=== PATIENT | female | born 1950 | race Caucasian/White ===

== ENCOUNTER 2020-03-07 16:15 | Outpatient (CLI) | payer MEDICARE, SELFPAY ==
--- NOTE | ~2020-03-07 | MM_ITS ---
EXAMINATION: MM screening alireza BI w kaylee HISTORY: Screening mammogram, family history of breast cancer in her mother. TECHNIQUE: Craniocaudal and mediolateral oblique 3-D tomosynthesis images were obtained and synthetic 2-D images were generated. CAD analysis was submitted and interpreted. COMPARISON: 02/08/2019, 02/01/2018, 01/26/2017 BREAST PARENCHYMAL COMPOSITION: The breasts are heterogeneously dense, which may obscure small masses . FINDINGS: RIGHT BREAST: An asymmetry is present in the far posterior third of the inner breast on the craniocau edward view. LEFT BREAST: There is no evidence of suspicious mass, calcification, or architectural distortion to s uggest malignancy. There has been no significant interval change. IMPRESSION: 1. Right breast asymmetry. 2. Additional mammographic views and possible breast ultrasound are recommended. BI-RADS Category 0: Incomplete: Needs additional imaging evaluation. Reviewed, dictated and finalized at location A. K STITCHER IMPRESSION: 1. Right breast asymmetry. 2. Additional mammographic views and possible breast ultrasound are recommended . BI-RADS Category 0: Incomplete: Needs additional imaging evaluation.
== END 2020-03-07 16:16 | disposition home or self-care (01) ==
PROVIDERS: PCP Family Medicine; Visit Provider Obstetrics & Gynecology
DX: Z12.31 Encounter for screening mammogram for malignant neoplasm of breast (principal); R92.8 Other abnormal and inconclusive findings on diagnostic imaging of breast
CPT/HCPCS: 77063; 77067

== ENCOUNTER 2020-04-06 12:46 | Outpatient (CLI) | payer MEDICARE, SELFPAY ==
--- NOTE | ~2020-04-06 | MMUS_ITS ---
EXAMINATION: MM diagnostic mammo unilat RT, US breast RT limited HISTORY: Follow-up right breast asymmetry TECHNIQUE: Additional 3-D tomosynthesis images of the right breast were performed and synthetic 2-D i mages were generated. CAD analysis was submitted and interpreted. High resolution Limited right breas t ultrasound was performed. COMPARISON: Comparison to multiple prior studies sequentially, with oldest reviewed study dated 01/07. BREAST PARENCHYMAL COMPOSITION: Breast composed of scattered areas of fibroglandular density. FINDINGS: MAMMOGRAPHIC FINDINGS: Focal asymmetry medially in the right breast on CC view is compatible with sternalis muscle. No suspi cious masses, calcifications or architectural distortion to suggest malignancy. There are benign calc ifications. ULTRASOUND: Limited right breast ultrasound: Normal heterogeneous echotexture without focal mass. IMPRESSION: 1. No evidence for malignancy in the right breast. 2. Routine yearly screening mammogram and regular clinical breast examination are recommended. BI-RADS Category 2: Benign finding(s). Reviewed, dictated and finalized at location A. ACT LENS TECHNICIAN IMPRESSION: 1. No evidence for malignancy in the right breast. 2. Routine yearly screening mammogram and regular clinical breast examination a re recommended. BI-RADS Category 2: Benign finding(s).
== END 2020-04-06 12:47 | disposition home or self-care (01) ==
LOC: ANHIMG 12:47
PROVIDERS: Family Provider Obstetrics & Gynecology; PCP Family Medicine; Visit Provider Obstetrics & Gynecology
DX: R92.8 Other abnormal and inconclusive findings on diagnostic imaging of breast (principal)
CPT/HCPCS: 76642; 77065

== ENCOUNTER 2020-04-23 09:03 | Outpatient (CLI) | payer MEDICARE, SELFPAY ==
--- NOTE | ~2020-04-23 | DEXA_ITS ---
Bone Density Report Name: Amada Gayle Age: 69 Sex: Female Ethnicity: White Date of : 1950 Indication: postmenopausal; hysterectomy; rheumatoid arthritis; Referring Provider: SUNDAY YA Study: Bone densitometry was performed. Exam Date: April 23, 2020 Accession number: [id number] Bone Density: Region BMD T-score Z-score Classification AP Spine (L1, L2, L3) 0.932 -0.8 1.3 Normal Femoral Neck (Left) 0.828 -0.2 1.6 Normal Total Hip (Left) 0.928 -0.1 1.4 Normal Total Hip Bilateral Avg 0.923 -0.2 1.4 Normal Femoral Neck (Right) 0.816 -0.3 1.5 Normal Total Hip (Right) 0.918 -0.2 1.3 Normal World Health Organization criteria for BMD impression classify patients as: Normal (T-score at or above -1.0), Osteopenia (T-score between -1.0 and -2.5), or Osteoporosis (T-score at or below -2.5). 10-year Fracture Risk: FRAX not reported because: All T-scores for Spine Total, Hip Total, Femoral Neck at or above -1.0 Previous Exams: Region Exam Age BMD T-score BMD Change BMD Change Date g/cm2 vs Baseline vs Previous AP Spine(L1, L2, L3) 04/23/2020 69 0.932 -0.8 -0.042(-4.3%)# -0.023(-2.4%)* 04/23/2018 67 0.955 -0.6 -0.019(-2.0%)# 0.026(2.9%)* 04/15/2016 65 0.929 -0.8 -0.046(-4.7%)# 0.012(1.3%)# 03/29/2012 61 0.917 -0.9 -0.058(-5.9%)# -0.029(-3.1%)# 08/20/2009 59 0.947 -0.6 -0.028(-2.9%)* -0.028(-2.9%)* 08/17/2007 57 0.975 -0.4 Total Hip(Left) 04/23/2020 69 0.928 -0.1 -0.016(-1.7%)# -0.068(-6.9%)* 04/23/2018 67 0.996 0.4 0.052(5.5%)# 0.070(7.5%)* 04/15/2016 65 0.926 -0.1 -0.018(-1.9%)# -0.018(-1.9%)# 03/29/2012 61 0.945 0.0 0.001(0.1%)# 0.013(1.3%)# 08/20/2009 59 0.932 -0.1 -0.012(-1.3%) -0.012(-1.3%) 08/17/2007 57 0.944 0.0 Total Hip(Right) 04/23/2020 69 0.918 -0.2 -0.022(-2.3%)# -0.054(-5.5%)* 04/23/2018 67 0.972 0.2 0.032(3.4%)# 0.078(8.7%)* 04/15/2016 65 0.894 -0.4 -0.046(-4.9%)# -0.059(-6.2%)# 03/29/2012 61 0.953 0.1 0.013(1.4%)# 0.029(3.1%)# 08/20/2009 59 0.924 -0.1 -0.016(-1.7%) -0.016(-1.7%) 08/17/2007 57 0.940 0.0 *Denotes significance at 95% confidence level, LSC for AP Spine = 0.022 g/cm2, LSC for Total Hip = 0.027 g/cm2 Clinical Information Provided by Patient: Has rheumatoid arthritis Has used the following medications: Vitamin D, Calcium Has the following medical conditions: Hysterectomy Patient maximum height was 66.5 Menopause Age: 34 Drinks caffeinated b
== END 2020-04-23 09:04 | disposition home or self-care (01) ==
LOC: ANHIMG 09:04
PROVIDERS: PCP Family Medicine; Visit Provider Obstetrics & Gynecology
DX: Z78.0 Asymptomatic menopausal state (principal)
CPT/HCPCS: 77080

== ENCOUNTER → 2020-10-23 08:06 | Outpatient (CLI) | payer MEDICARE, SELFPAY ==
[2020-10-23 21:09] LABS: SARS-CoV-2 RNA PCR Negative
== END ==
PROVIDERS: PCP Family Medicine; Visit Provider Nurse Practitioner Family
DX: R68.89 Other general symptoms and signs (principal); Z20.822 Contact with and (suspected) exposure to COVID-19
CPT/HCPCS: C9803; U0003; U0005

== ENCOUNTER 2021-01-04 13:23 | Outpatient (CLI) | payer MEDICARE, SELFPAY ==
--- NOTE | ~2021-01-04 | MMUS_ITS ---
EXAMINATION: MM diagnostic alireza BI w kaylee, US breast RT complete HISTORY: Right breast pain TECHNIQUE: ML, MLO and craniocaudal 3-D tomosynthesis images of both breasts were performed and [facility] were generated. CAD analysis was submitted and interpreted. High resolution complete right breast ultrasound including all 4 quadrants and subareolar area was performed. COMPARISON: 04/06/2020 right diagnostic mammogram and limited right breast ultrasound 03/07/2020, 02/25/2019, 02/01/2018 bilateral screening mammogram examinations BREAST PARENCHYMAL COMPOSITION: The breasts are heterogeneously dense, which may obscure small masses . FINDINGS: MAMMOGRAPHIC FINDINGS: No suspicious mass or architectural distortion, malignant calcification, skin thickening or retractio n or significant new or developing density is detected. ULTRASOUND: No suspicious mass or shadowing of the right breast is detected. No other significant finding. IMPRESSION: 1. No mammographic evidence of malignancy 2. Routine mammographic screening is recommended. BI-RADS Category 1: Negative Reviewed, dictated and finalized at location A. IMPRESSION: 1. No mammographic evidence of malignancy 2. Routine mammographic screening is recommended. BI-RADS Category 1: Negative
== END 2021-01-04 13:24 | disposition home or self-care (01) ==
LOC: ANHIMG 13:25
PROVIDERS: PCP Family Medicine; Visit Provider Obstetrics & Gynecology
DX: N64.4 Mastodynia (principal)
CPT/HCPCS: 76641; 77062; 77066; G0279

== ENCOUNTER 2021-03-06 18:22 | Emergency (ER) | payer MEDICARE, SELFPAY ==
--- NOTE | 2021-03-06 18:24 | PC.NURSE ---
pt instructed to apply pressure. pt non compliant. nose clamp placed and pt removed. states she cant breathe.
[2021-03-06 18:32] VITALS: BP 111/56; RESP 16; TEMP 35.9
[2021-03-06] MEDS: PHENYLEPHRINE HCL 0.5% NA SPRAY 15 ML BTL (*BKC) 1 SPRAY EACH NARE (19:08)
--- NOTE | 2021-03-06 19:27 | PC.NURSE ---
Report received from Kevin Ivy RN to continue care.
--- NOTE | 2021-03-06 19:56 | ED.EPISTAXIS ---
HPI - Epistaxis General Chief complaint: Epistaxis Stated complaint: nosebleed Time Seen by Provider: 03/06/21 18:50 Source: patient Mode of arrival: ambulatory Limitations: no limitations History of Present Illness HPI Narrative: 70-year-old with a history of hypothyroidism here with complaints of sudden onset of nosebleed on the left side started few hours ago. Patient states that she had one last night lasted for few minutes. She denies any trauma. MD complaint: epistaxis Location: left nostril Onset (ago): hour(s) (1) Duration: constant Related Data Home Medications Medication Instructions Recorded Confirmed Calcium 01/29/19 10/24/20 Fiber Con 01/29/19 10/24/20 diphenhydramine HCl 25 mg capsule 25 mg PO BID 12/19/20 Allergies Allergy/AdvReac Type Severity Reaction Status Date / Time tramadol Allergy Intermediate RAPID Verified 12/19/20 10:06 HEART RATE/LOSS OF WEIGHT azithromycin Allergy Mild RASH Verified 12/19/20 10:06 ciprofloxacin [From Cipro] Allergy Mild rash Verified 12/19/20 10:06 Penicillins Allergy Mild Rash Verified 12/19/20 10:06 sulfamethoxazole Allergy Mild Unknown Verified 12/19/20 10:06 [From Bactrim] trimethoprim [From Bactrim] Allergy Mild Unknown Verified 12/19/20 10:06 nitrofurantoin Allergy Unknown Hives Verified 12/19/20 10:06 Avigbcs-FDH-WhQ Reductase AdvReac Unknown MUSCLE Verified 12/19/20 10:06 Inhibitor WEAKNESS [Xpeztrj-Oft-Qzs Reductase Inhibitor] STEROIDS AdvReac Unknown Unknown Uncoded 12/19/20 10:06 Review of Systems Review of Systems: All systems reviewed & are unremarkable except as noted in HPI and below Constitutional: Constitutional: Reports no additional constitutional complaints Eyes: Eyes: Reports no additional eye complaints ENT: Reports as per HPI Cardiovascular: Cardiovascular: Reports no additional cardiovascular complaints Respiratory: Respiratory: Reports no additional respiratory complaints Musculoskeletal: Musculoskeletal: Reports no additional musculoskeletal complaints Integumentary/Breasts: Skin/Breast: Reports system reviewed and no additional complaints, except as docu PMFSH Past Medical History Medical History Endometriosis H/O vaginal delivery Hypothyroidism Surgical History Surgical History H/O dilation and curettage H/O: hysterectomy History of tubal ligation Hx of tonsillectomy Family History Family History Grandparent Carcinoma of colon Mother Family history of malignant neoplasm of breast in first degree relative Other Hypertension Social History Social History Smoking status: Never smoker Second hand tobacco smoke exposure: No Alcohol intake: never Substance use: never Substance use type: does not use Gender identity (if verbalized by the patient): Female Sexual Orientation (if Verbalized by the Patient): Straight or Heterosexual Exam Narrative: GENERAL: Well-appearing, well-nourished, and in no acute distress. HEAD: Normocephalic, atraumatic. EYES: PERRLA and EOMI. ENT: active bleeding from the left nares. NECK: Supple. CHEST: Clear to auscultation. No respiratory distress. HEART: Regular rate and rhythm. No murmur heard. Normal peripheral pulses. EXTREMITIES: Normal range of motion. No edema. SKIN: Warm, dry, no rash. NEURO: No focal deficits. Alert and oriented x3. PSYCH: Normal mood and affect. Course Vital Signs Vital signs: Vital Signs Temperature 35.9 C L 03/06/21 18:32 Respiratory Rate 16 03/06/21 18:32 Blood Pressure 111/56 L 03/06/21 18:32 Temperature 35.9 C L 03/06/21 18:32 Respiratory Rate 16 03/06/21 18:32 Blood Pressure 111/56 L 03/06/21 18:32 Procedures Epistaxis Control left: Epistax
== END 2021-03-06 20:25 | disposition home or self-care (01) ==
PROVIDERS: Emergency Provider Family Medicine; PCP Family Medicine
DX: R04.0 Epistaxis (principal); E03.9 Hypothyroidism, unspecified
CPT/HCPCS: 30901; 99283; A9270

== ENCOUNTER 2021-07-18 08:01 | Outpatient (CLI) | payer MEDICARE, SELFPAY ==
--- NOTE | ~2021-07-18 | MM_ITS ---
EXAMINATION: MM screening alireza BI w kaylee HISTORY: Screening TECHNIQUE: Craniocaudal and mediolateral oblique 3-D tomosynthesis images were obtained and synthetic 2-D images were generated. CAD analysis was submitted and interpreted. COMPARISON: Comparison to multiple prior studies sequentially, with oldest reviewed study dated 01/08. BREAST PARENCHYMAL COMPOSITION: The breasts are heterogeneously dense, which may obscure small masses . FINDINGS: There is no evidence of suspicious mass, calcification, or architectural distortion to sugg est malignancy in either breast. There has been no suspicious interval change. IMPRESSION: 1. No mammographic evidence of malignancy. 2. Recommend routine screening mammography in one year. BI-RADS Category 1: Negative Reviewed, dictated and finalized at location A.
== END 2021-07-18 08:02 | disposition home or self-care (01) ==
PROVIDERS: PCP Family Medicine; Visit Provider Obstetrics & Gynecology
DX: Z12.31 Encounter for screening mammogram for malignant neoplasm of breast (principal)
CPT/HCPCS: 77063; 77067

== ENCOUNTER → 2021-09-24 08:22 | Outpatient (CLI) | payer MEDICARE, SELFPAY ==
--- NOTE | ~2021-09-24 | XR_ITS ---
EXAMINATION: XR hand RT min 3V, XR wrist RT w scaphoid DATE: Contusion at the right wrist. INDICATION: Contusion at the right wrist. TECHNIQUE: 1. Posteroanterior, ulnar deviation, oblique, and lateral views of the right wrist were obtained. 2. Dorsal palmar, oblique and lateral views of the right hand were obtained. COMPARISON: None. FINDINGS: Alignment of the right hand and wrist are normal. No fracture identified. Polyarticular osteoarthrit is, severe at the first carpometacarpal and with central erosions with: Configuration consistent with erosive osteoarthritis at the second, third and fifth distal interphalangeal joints. Additional mode rate osteoarthritis at the remaining interphalangeal joints and mild osteoarthritis at the triscaphe and at the metacarpophalangeal joints. Mild periarticular soft tissue swelling about some of the inte rphalangeal joints.. IMPRESSION: 1. Severe polyarticular osteoarthritis most prominent at the first carpometacarpal and a few distal i nterphalangeal joints. No acute osseous abnormality. Reviewed, dictated and finalized at location A. IMPRESSION: 1. Severe polyarticular osteoarthritis most prominent at the first carpometacar pal and a few distal interphalangeal joints. No acute osseous abnormality.
== END ==
PROVIDERS: PCP Family Medicine; Visit Provider Physician Assistant
DX: S60.211A Contusion of right wrist, initial encounter (principal); X58.XXXA Exposure to other specified factors, initial encounter; M25.431 Effusion, right wrist; M19.031 Primary osteoarthritis, right wrist
CPT/HCPCS: 73110; 73130

== ENCOUNTER 2022-02-14 10:18 | Outpatient (CLI) | payer MEDICARE, SELFPAY | END 2022-02-14 10:19 | disposition home or self-care (01) | LOC: ANHAUDASC 10:19 | PROVIDERS: PCP Family Medicine; Visit Provider Otolaryngology | DX: H69.81 Other specified disorders of Eustachian tube, right ear (principal); H90.41 Sensorineural hearing loss, unilateral, right ear, with unrestricted hearing on the contralateral side; H90.11 Conductive hearing loss, unilateral, right ear, with unrestricted hearing on the contralateral side | CPT/HCPCS: 92557; 92567 ==

== ENCOUNTER 2022-07-21 07:59 | Outpatient (CLI) | payer MEDICARE, SELFPAY ==
--- NOTE | ~2022-07-21 | MM_ITS ---
EXAMINATION: MM screening alireza BI w kaylee HISTORY: Screening mammogram, family history of breast cancer in her mother. TECHNIQUE: Craniocaudal and mediolateral oblique 3-D tomosynthesis images were obtained and synthetic 2-D images were generated. CAD analysis was submitted and interpreted. COMPARISON: 07/18/2021, 01/04/2021, 03/07/2020 BREAST PARENCHYMAL COMPOSITION:The breasts are heterogeneously dense, which may obscure small masses. FINDINGS: No suspicious mass, calcification, or architectural distortion are identified in either shane ast to suggest malignancy. There has been no suspicious interval change. IMPRESSION: No mammographic evidence of malignancy. Recommend routine screening mammography in one year. BI-RADS Category 1: Negative Reviewed, dictated and finalized at location .
--- NOTE | ~2022-07-21 | DEXA_ITS ---
Bone Density Report Name: IMTALI BEASLEY Age: 72 Sex: Female Ethnicity: White Date of : 1950 Indication: postmenopausal; screening for osteoporosis; hysterectomy; rheumatoid arthritis; Referring Provider: SUNDAY YA Study: Bone densitometry was performed. Exam Date: July 21, 2022 Accession number: [id number] Bone Density: Region BMD T-score Z-score Classification AP Spine(L1, L2, L3) 0.947 -0.6 1.6 Normal Femoral Neck (Left) 0.822 -0.2 1.7 Normal Total Hip (Left) 0.891 -0.4 1.3 Normal Femoral Neck (Right) 0.772 -0.7 1.3 Normal Total Hip (Right) 0.866 -0.6 1.0 Normal Total Hip Mean 0.878 -0.5 1.2 Normal World Health Organization criteria for BMD impression classify patients as: Normal (T-score at or above -1.0), Osteopenia (T-score between -1.0 and -2.5), or Osteoporosis (T-score at or below -2.5). 10-year Fracture Risk: FRAX not reported because: All T-scores for Spine Total, Hip Total, Femoral Neck at or above -1.0 Previous Exams: Region Exam Age BMD T-score BMD Change BMD Change Date g/cm2 vs Baseline vs Previous AP Spine (L1-L3) 07/21/2022 72 0.947 -0.6 0.030 (3.3%)# 0.015 (1.6%) 04/23/2020 69 0.932 -0.8 0.015 (1.7%)# -0.023 (-2.4%) 04/23/2018 67 0.955 -0.6 0.038 (4.2%)# 0.026 (2.9%)* 04/15/2016 65 0.929 -0.8 0.012 (1.3%)# 0.012 (1.3%)# 03/29/2012 61 0.917 -0.9 Total Hip(Left) 07/21/2022 72 0.891 -0.4 -0.054 (-5.7%) -0.037 (-4.0%) 04/23/2020 69 0.928 -0.1 -0.017 (-1.8%) -0.068 (-6.9%) 04/23/2018 67 0.996 0.4 0.052 (5.5%)# 0.070 (7.5%)* 04/15/2016 65 0.926 -0.1 -0.018 (-1.9%) -0.018 (-1.9%) 03/29/2012 61 0.945 0.0 Total Hip(Right) 07/21/2022 72 0.866 -0.6 -0.088 (-9.2%) -0.053 (-5.7%) 04/23/2020 69 0.918 -0.2 -0.035 (-3.7%) -0.054 (-5.5%) 04/23/2018 67 0.972 0.2 0.019 (2.0%)# 0.078 (8.7%)* 04/15/2016 65 0.894 -0.4 -0.059 (-6.2%) -0.059 (-6.2%) 03/29/2012 61 0.953 0.1 *Denotes significance at 95% confidence level, LSC for AP Spine = 0.022 g/cm2, LSC for Total Hip = 0.027 g/cm2 # Denotes dissimilar scan types or analysis methods Clinical Information Provided by Patient: Has rheumatoid arthritis Has used the following medications: Vitamin D, Calcium Has the following medical conditions: Hysterectomy Patient maximum height was 65 Menopause Age: 34 Onset of menses at age 11 Number of children 3 Elsy
== END 2022-07-21 08:00 | disposition home or self-care (01) ==
LOC: ANHIMG 08:00
PROVIDERS: PCP Family Medicine; Visit Provider Obstetrics & Gynecology
DX: Z12.31 Encounter for screening mammogram for malignant neoplasm of breast (principal); Z78.0 Asymptomatic menopausal state
CPT/HCPCS: 77063; 77067; 77080

== ENCOUNTER 2024-01-18 13:09 | Emergency (ER) | payer MEDICARE, SELFPAY ==
--- NOTE | ~2024-01-18 | XR_ITS ---
EXAMINATION: XR hand RT min 3V DATE: 01/18/2024 13:46 INDICATION: Right hand injury and pain. TECHNIQUE: 3 views of right hand were obtained. COMPARISON: None. FINDINGS: There is ulnar subluxation of second distal phalanx with respect to the middle phalanx. The re is ulnar angulation of third middle phalanx with respect to the proximal phalanx. No fracture. The re is severe osteoarthritis of first carpometacarpal joint, first interphalangeal joint, second dista l interphalangeal joint, third proximal and distal interphalangeal joints, and fifth distal interphal angeal joint. There is mild osteoarthritis of some of the anterior other interphalangeal joints. IMPRESSION: 1. Polyarticular osteoarthritis. Reviewed, dictated and finalized at location A. OARD MOTOR TESTER
[2024-01-18 13:10] VITALS: BP 118/60; PULSE 77; RESP 14; TEMP 36.7; O2SAT 99
--- NOTE | 2024-01-18 14:17 | ED.UPPEXIN ---
HPI - Extremity Injury (Upper) General Chief Complaint: Extremity Injury, Upper Stated Complaint: right hand injury Time Seen by Provider: 01/18/24 14:00 Source: patient Mode of arrival: ambulatory Limitations: no limitations History of Present Illness HPI narrative: Patient is a 73 y/o female who presents to the ED with c/o R hand pain. patient reports she sustained an injury to her right hand from her [place] dog after it got its collar stuck on the handle of a cabinet. Complains of pain to her right dorsal hand with small abrasion noted. Wanted to ensure there was no fracture. Denies numbness. Denies any other injuries. Related Data Home Medications Medication Instructions Recorded Confirmed Fiber Con 01/29/19 11/11/23 levocetirizine 5 mg tablet (Xyzal) 5 mg PO DAILY 04/06/23 11/11/23 Allergies Allergy/AdvReac Type Severity Reaction Status Date / Time tramadol Allergy Intermediate RAPID Verified 11/11/23 09:08 HEART RATE/LOSS OF WEIGHT azithromycin Allergy Mild RASH Verified 11/11/23 09:08 ciprofloxacin [From Cipro] Allergy Mild rash Verified 11/11/23 09:08 Penicillins Allergy Mild Rash Verified 11/11/23 09:08 sulfamethoxazole Allergy Mild Unknown Verified 11/11/23 09:08 [From Bactrim] trimethoprim [From Bactrim] Allergy Mild Unknown Verified 11/11/23 09:08 nitrofurantoin Allergy Unknown Hives Verified 11/11/23 09:08 Ixhzlyi-PHL-VcK Reductase AdvReac Unknown MUSCLE Verified 11/11/23 09:08 Inhibitor WEAKNESS [Dblxsee-Kpe-Vuf Reductase Inhibitor] acetaminophen [From Tylenol] AdvReac Other Verified 11/11/23 09:08 hydrocodone AdvReac Other Verified 11/11/23 09:08 STEROIDS AdvReac Unknown Unknown Uncoded 11/11/23 09:08 Review of Systems Review of Systems: All systems reviewed & are unremarkable except as noted in HPI. All systems reviewed & are unremarkable except as noted in HPI and below PMFSH Past Medical History Medical History Arthritis Endometriosis H/O vaginal delivery Hypothyroidism Kidney disease Statin intolerance Surgical History Surgical History H/O dilation and curettage H/O: hysterectomy Hx of tonsillectomy S/P oophorectomy Family History Family History Grandparent Carcinoma of colon Mother Family history of malignant neoplasm of breast in first degree relative Son Family history of alcoholism Depression Sibling Diabetes mellitus Heart disease Other Hypertension Social History Social History Social History: Smoking status: Never smoker Second hand tobacco smoke exposure: No Alcohol intake: never Substance use: never Substance use type: does not use Do You Feel Safe in your Home?: Yes Lack of Transportation: No Lack of Food: Never True Current Housing: I Have Housing Concerned About Future Housing: No Difficulty Paying Gas/Electric Bills: No Difficulty Paying for Meds: No Currently Unemployed: YES Education: Master's Degree or Higher Difficulty w/ Childcare or Family Care: No Living arrangements: with family Occupation/Education: retired Gender identity (if verbalized by the patient): Female Sexual Orientation (if Verbalized by the Patient): Straight or Heterosexual Exam Narrative: GENERAL: Well appearing, thin, non-toxic, in no acute distress. HEAD: Normocephalic, atraumatic. RESPIRATORY: Airway patent, respirations nonlabored. CARDIOVASCULAR: Regular rate and rhythm. Radial pulses 2+. MUSCULOSKELETAL: Moves all extremities. No gross deformities. Small amount of bruising and swelling to right dorsal hand over area of 1st and 2nd metacarpals with tiny abrasion present. No active bleeding or drainage. Mild focal tenderness. Sensation intact. SKIN: Warm, dry, normal color. NEURO: A&O X3. Speech clear. No ataxic movements. PSYCHIATRIC: Appropriate mood and affect. Normal interaction. Course Vital Signs Vital signs: Vital Signs Temperature 98.1 F 01/18/24 13:10 Pulse Rate 77 01/18/24 13:10 Respiratory Rate 14 01/18/24 13:10 Blood Pressure 118/60 01/18/24 13:10 Pulse Oximetry 99 01/18/24 13:10 Oxygen Delivery Room Air 01/18/24 13:10 Temperature 98.1 F 01/18/24 13:10 Pulse Rate 77 01/18/24 13:10 Respiratory Rate 14 01/18/24 13:10 Blood Pressure 118/60 01/18/24 13:10 Pulse Oximetry 99 01/18/24 13:10 Oxygen Delivery Room Air 01/18/24 13:10 MDM - Extremity Injury (Upper) MDM Narrative Medical decision making narrative: Patient?s injury is consistent with musculoskeletal etiology. No signs of neurologic or vascular compromise on physical examination. Compartments are soft without signs of compartment syndrome. XR of right hand negative for fracture. Showing polyarticular osteoarthritis. Pain is consistent with hand contusion. Patient is felt to be stable for discharge home and further outpatient management and treatment. Offered Jeremi bandage, however patient politely declined. Recommended ice, Tylenol/ ibuprofen as needed for pain. Given return precautions. Discharged in stable condition. Medical Records Attestation: I reviewed the patient's medical records. Imaging Data Attestation: I personally reviewed and interpreted this imaging study as follows: Radiologist's impression: ITS Impressions Hand X-Ray 01/18/24 13:52 IMPRESSION: 1. Polyarticular osteoarthritis. Discharge Plan Discharge Clinical Impression: Contusion of right hand Qualifiers: Encounter type: initial encounter Qualified Code(s): S60.221A - Contusion of right hand, initial encounter Patient Disposition: Home, Self-Care Condition: Stable Instructions: Antibiotic Form, Hand Sprain (ED) Additional Instructions: Recommend ice to hand, Tylenol/ ibuprofen as needed for pain. Return to the ED if you experience worsening or severe pain, recurrent injury, numbness, or any other symptoms of concern. Prescriptions: No Action Fiber Con ondansetron 4 mg tablet,disintegrating 4 mg PO Q8H PRN (Reason: nausea and vomiting) Qty: 30 0RF levocetirizine [Xyzal] 5 mg tablet 5 mg PO DAILY levothyroxine 50 mcg tablet 50 mcg PO DAILY Qty: 90 3RF ergocalciferol (vitamin D2) 1,250 mcg (50,000 unit) capsule See Rx Instructions .ROUTE .COMPLEX Qty: 6 1RF Dose Instruction: TAKE 1 CAPSULE BY MOUTH EVERY OTHER WEEK Rx Instructions: TAKE 1 CAPSULE BY MOUTH EVERY OTHER WEEK ezetimibe [Zetia] 10 mg tablet 10 mg PO DAILY Qty: 30 5RF Follow-up/Referrals: Froylan Pettit MD [Primary Care Provider] - Time of Disposition: 14:02
== END 2024-01-18 14:20 | disposition home or self-care (01) ==
PROVIDERS: Emergency Provider Physician Assistant; PCP Family Medicine
DX: S60.221A Contusion of right hand, initial encounter (principal); X58.XXXA Exposure to other specified factors, initial encounter; E03.9 Hypothyroidism, unspecified
CPT/HCPCS: 73130; 99283

== ENCOUNTER 2024-03-28 09:26 | Emergency (ER) | payer MEDICARE, SELFPAY ==
[2024-03-28 09:47] VITALS: BP 156/80; PULSE 81; RESP 16; TEMP 36.7; O2SAT 99
[2024-03-28 10:01] LABS: EDUAAPPEAR Clear; EDUABILI Negative (Negative); EDUABLOOD Trace (Negative); EDUACOLOR1 Yellow; EDUAGLUCOSE Negative (Negative); EDUAKETONE Negative (Negative); EDUALEUKO Negative (Negative); EDUANITRATE Negative (Negative); EDUAPH 5.5; EDUAPROTEIN Negative (Negative); EDUAUROBILI 0.2
--- NOTE | 2024-03-28 10:19 | ED_ITS ---
HPI - Female Genitourinary General Chief complaint: Urogenital-Female Stated complaint: UTI Time Seen by Provider: 03/28/24 10:12 Source: patient and RN notes reviewed Mode of arrival: ambulatory Limitations: no limitations History of Present Illness HPI Narrative: Patient presents today with a one-week history of lower abdominal aching . Denies any additional symptoms to include back pain, fever, dysuria, hematuria, urinary frequency. She has had UTIs in the past that have caused this time of pain and wanted to come in for evaluation as she is getting ready to leave for vacation. Related Data Home Medications ?Medication ?Instructions ?Recorded ?Confirmed ?Last Taken ?Type Fiber Con 01/29/19 11/11/23 Unknown History levocetirizine 5 mg tablet (Xyzal) 5 mg PO DAILY 04/06/23 11/11/23 Unknown History Allergies Allergy/AdvReac Type Severity Reaction Status Date / Time tramadol Allergy Intermediate RAPID Verified 11/11/23 09:08 HEART RATE/LOSS OF WEIGHT azithromycin Allergy Mild RASH Verified 11/11/23 09:08 Penicillins Allergy Mild Rash Verified 11/11/23 09:08 sulfamethoxazole (From Allergy Mild Unknown Verified 11/11/23 09:08 Bactrim) trimethoprim (From Bactrim) Allergy Mild Unknown Verified 11/11/23 09:08 nitrofurantoin Allergy Unknown Hives Verified 11/11/23 09:08 [id number]-PCH-[id number] Reductase AdvReac Unknown MUSCLE Verified 11/11/23 09:08 Inhibitor (Nsaoorz-Mnn-Xcj WEAKNESS Reductase Inhibitor) acetaminophen (From Tylenol) AdvReac Other Verified 11/11/23 09:08 hydrocodone AdvReac Other Verified 11/11/23 09:08 STEROIDS AdvReac Unknown Unknown Uncoded 11/11/23 09:08 Review of Systems Review of Systems: CONSTITUTIONAL: Denies body aches, fever, chills, or sweats. EYES: Denies visual changes, redness, or discharge. ENT: Denies rhinorrhea, congestion, sore throat, or otalgia. CARDIOVASCULAR: Denies chest pain, palpitations, or edema. RESPIRATORY: Denies cough or dyspnea. GASTROINTESTINAL: Denies nausea, vomiting, or diarrhea.+ lower abdominal discomfort GENITOURINARY: Denies dysuria or hematuria. SKIN: Denies rash, itching, or wounds. MUSCULOSKELETAL: Denies back pain, joint pain, or myalgia. NEUROLOGIC: Denies headache, numbness, tingling, or weakness. PSYCH: Denies depression or anxiety. [facility] Past Medical History Medical History Statin intolerance Kidney disease Arthritis H/O vaginal delivery Endometriosis Hypothyroidism Surgical History Surgical History S/P oophorectomy H/O dilation and curettage Hx of tonsillectomy H/O: hysterectomy Family History Family History Grandparent Carcinoma of colon Mother Family history of malignant neoplasm of breast in first degree relative Son Family history of alcoholism Depression Sibling Diabetes mellitus Heart disease Other Hypertension Social History Social History Social History: Smoking status: Never smoker Second hand tobacco smoke exposure: No Alcohol intake: never Substance use: never Substance use type: does not use Do You Feel Safe in your Home?: Yes Lack of Transportation: No Lack of Food: Never True Current Housing: I Have Housing Concerned About Future Housing: No Difficulty Paying Gas/Electric Bills: No Difficulty Paying for Meds: No Currently Unemployed: YES Education: Master's Degree or Higher Difficulty w/ Childcare or Family Care: No Living arrangements: with family Occupation/Education: retired Gender identity (if verbalized by the patient): Female Sexual Orientation (if Verbalized by the Patient): Straight or Heterosexual Comments At time of signature, I have reviewed and agree with nursing past medical, surgical, social and family history unless otherwise noted. Please see nursing chart for further information. There is no relevant family history pertinent to the presenting complaint Exam Narrative: GENERAL: Well-appearing, well-nourished, and in no acute distress. HEAD: Normocephalic, atraumatic. EYES: EOMI. No redness or drainage. Conjunctivae normal. ENT: Mucous membranes pink and moist. NECK: Normal AROM. CHEST: No respiratory distress. Clear to auscultation. HEART: Regular rate and rhythm. No murmur appreciated. ABDOMEN: Soft, , nondistended, normal active bowel sounds. Suprapubic tenderness EXTREMITIES: Normal range of motion. No edema. SKIN: Warm, dry, no rash. Capillary refill normal. Normal skin turgor. NEURO: No focal deficits. Alert and oriented x3. Gait steady. PSYCH: Normal affect. No signs of depression or anxiety. Course Course Level of Care: Express Care Visit Vital Signs Vital signs: Vital Signs Temperature 98.0 F 03/28/24 09:47 Pulse Rate 81 03/28/24 09:47 Respiratory Rate 16 03/28/24 09:47 Blood Pressure 156/80 H 03/28/24 09:47 Pulse Oximetry 99 03/28/24 09:47 Oxygen Delivery Room Air 03/28/24 09:47 Temperature 98.0 F 03/28/24 09:47 Pulse Rate 81 03/28/24 09:47 Respiratory Rate 16 03/28/24 09:47 Blood Pressure 156/80 H 03/28/24 09:47 Pulse Oximetry 99 03/28/24 09:47 Oxygen Delivery Room Air 03/28/24 09:47 Reviewed MDM - Female Genitourinary MDM Narrative Medical decision making narrative: Urinalysis shows trace blood in the urine. Patient has history of hysterectomy. Along with her lower abdominal discomfort, will start on course of Cipro for presumed UTI. Patient has allergy to penicillins, Bactrim, Macrobid. Culture pending. Differential Diagnosis Differential diagnosis: Likely urinary tract infection, vaginitis and cystitis Lab Data Attestation: I reviewed the patient's lab results. Labs: Lab Results 03/28/24 Range/Units 09:58 POC Urine Color Yellow POC Urine Clarity Clear POC Urine pH 5.5 POC Ur Specif Gonzales 1.010 POC Urine Protein Negative (Negative) POC Ur Glucose (UA) Negative (Negative) POC Urine Ketones Negative (Negative) POC Urine Blood Trace (Negative) POC Urine Nitrite Negative (Negative) POC Urine Bilirubin Negative (Negative) POC Urine Urobilinogen 0.2 POC U Leukocyte Esteras Negative (Negative) Critical Care Time Critical Care Time Critical Care Time: No Discharge Plan Discharge Clinical Impression: Urinary tract infection Qualifiers: Urinary tract infection type: acute cystitis Hematuria presence: with hematuria Qualified Code(s): N30.01 - Acute cystitis with hematuria Patient Disposition: Home, Self-Care Condition: Stable Instructions: Antibiotic Form, Urinary Tract Infection in Women (DC) Additional Instructions: Your urine shows infection today. Take Cipro as prescribed until gone. Your urine will be sent of for a culture to identify what type of bacteria is causing your infection. If the culture shows that your medication will not get rid of your infection, you will be notified and a new antibiotic will be called in for you. If your symptoms worsen to include fever, sweats, chills, nausea, vomiting, severe abdominal or back pain, please go to the ER for further evaluation. Your blood pressure was elevated above 120/80 today at Urgent Care. This puts you above the threshold for follow up. Please schedule a followup visit with your personal physician as soon as possible, for further evaluation and treatment. Even blood pressure exceeding 120/80 may indicate pre-hypertension. Patient Language: Vietnamese Prescriptions: New ciprofloxacin HCl 500 mg tablet 500 mg PO Q12H 5 Days Qty: 10 0RF No Action Fiber Con ondansetron 4 mg tablet,disintegrating 4 mg PO Q8H PRN (Reason: nausea and vomiting) Qty: 30 0RF levocetirizine [Xyzal] 5 mg tablet 5 mg PO DAILY levothyroxine 50 mcg tablet 50 mcg PO DAILY Qty: 90 3RF ezetimibe [Zetia] 10 mg tablet 10 mg PO DAILY Qty: 30 5RF ergocalciferol (vitamin D2) 1,250 mcg (50,000 unit) capsule See Rx Instructions .ROUTE .COMPLEX Qty: 6 2RF Dose Instruction: TAKE 1 CAPSULE BY MOUTH EVERY OTHER WEEK Rx Instructions: TAKE 1 CAPSULE BY MOUTH EVERY OTHER WEEK Follow-up/Referrals: Froylan Pettit MD [Primary Care Provider] - Time of Disposition: 10:25
== END 2024-03-28 10:28 | disposition home or self-care (01) ==
PROVIDERS: Emergency Provider Nurse Practitioner; PCP Family Medicine
DX: N30.01 Acute cystitis with hematuria (principal); M19.90 Unspecified osteoarthritis, unspecified site; E03.9 Hypothyroidism, unspecified; N80.9 Endometriosis, unspecified
CPT/HCPCS: 81003; 87086; 99213; G0463

== ENCOUNTER 2024-04-05 17:05 | Inpatient (IN) | payer MEDICARE, SELFPAY ==
--- NOTE | ~2024-04-05 | CT_ITS ---
EXAMINATION: CT abdomen pelvis w con DATE: 04/05/2024 22:40 INDICATION: Abdominal pain. TECHNIQUE: Computed tomography (CT) of the abdomen and pelvis was performed with 100 mL Omnipaque 350 intravenous contrast. Automated exposure control and iterative reconstruction technique were employe d. The dose-length product was 256.65 mGy-cm. COMPARISON: CT abdomen and pelvis 05/27/2010 FINDINGS: The visualized portions of lung bases demonstrate mild atelectasis. No pleural effusion. Th e heart size is normal. No pericardial effusion. The liver, gallbladder, spleen, pancreas, adrenal gl ands, and kidneys are normal. The cecum is dilated and is in the left abdomen. The appendix is not vi sualized. There are no pathologically enlarged lymph nodes. There is a small volume of pelvic ascites . 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 There is severe lumbar spondylosis. IMPRESSION: 1. Cecal volvulus. Reviewed, dictated and finalized at location A. NING AND DEVELOPMENT OFFICER IMPRESSION: 1. Cecal volvulus.
--- OUTSIDE RECORDS SUMMARY | 2024-04-05 17:07 | XMS_ITS | Clinical Summary ---
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 Chronic kidney disease, stage 3 (moderate) 10/05 Other and unspecified hyperlipidemia 10/06/2011 Overview (05/22/2018): Converted unresolved ICD9, potential mismatch. 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
[2024-04-05 17:12] VITALS: BP 161/78; PULSE 73; RESP 20; TEMP 36.4; O2SAT 99
--- NOTE | 2024-04-05 17:36 | ED.GENADULT ---
HPI - General Adult General Chief complaint: Abdominal Pain <Philly Peguero July, Last Filed: 04/05/24 18:39> Stated complaint: severe lower abdominal pain <Philly Peguero July, - Last Filed: 04/05/24 18:39> Time Seen by Provider: 04/05/24 17:37 <Philly Peguero July, - Last Filed: 04/05/24 18:39> Focused HPI: Amada Gayle is a 73 y/o female with complaints of right lower abdominal pain that started at 1130 today. She states she has had BM today and that did not help her pain. She has had an appendectomy and both ovaries removed. She states that now she is having a lot of abdominal distention, still able to pass gas. Reports nausea/ no vomiting/ Last ate today at around 1200 bowel sounds present throughout + pain with palpation GENERAL: Well-appearing, well-nourished, and in no acute distress. HEAD: Normocephalic, atraumatic. CHEST: Clear to auscultation. ?No respiratory distress. HEART: Regular rate and rhythm.? NEURO: ?Alert and oriented x3. Patient screened in triage and initial orders placed.? ?Additional care and disposition to be based upon?diagnostic testing and treatment. <Philly BrittHuey July, - Last Filed: 04/05/24 18:39> Focused HPI: Amada Gayle is a 73 y/o female with complaints of right lower abdominal pain that started at 1130 today. She states she has had BM today and that did not help her pain. She has had an appendectomy and both ovaries removed. She states that now she is having a lot of abdominal distention, still able to pass gas. Reports nausea/ no vomiting/ Last ate today at around 1200 Bowel sounds present throughout + pain with palpation GENERAL: Well-appearing, well-nourished, and in no acute distress. HEAD: Normocephalic, atraumatic. CHEST: Clear to auscultation. ?No respiratory distress. HEART: Regular rate and rhythm.? NEURO: ?Alert and oriented x3. Patient screened in triage and initial orders placed.? ?Additional care and disposition to be based upon?diagnostic testing and treatment. <Lisset Gibson, SALESPERSON [employer] - Last Filed: 04/06/24 00:09> History of Present Illness HPI narrative: I agree with the assessment and documentation from Keiry Wolfe NP. <Lisset Gibson, MARCELA - Last Filed: 04/06/24 00:09> Related Data Home medications: Home Medications ?Medication ?Instructions ?Recorded ?Confirmed ?Last Taken ?Type levocetirizine 5 mg tablet (Xyzal) 2.5 mg PO DAILY 04/06/23 04/06/24 Unknown History calcium 600 mg (as 1 cap PO DAILY 04/06/24 04/06/24 Unknown History carbonate)-vitamin D3 5 mcg (200 unit) capsule (Calcium 600 + D(3)) calcium polycarbophil 625 mg 1,250 mg PO DAILY 04/06/24 04/06/24 Unknown History tablet (Fiber (calcium polycarbophil)) <Philly Wolfe, [employer]ESPERSON [employer] - Last Filed: 04/05/24 18:39> Allergies/adverse reactions: Allergies Allergy/AdvReac Type Severity Reaction Status Date / Time tramadol Allergy Intermediate RAPID Verified 04/05/24 17:18 HEART RATE/LOSS OF WEIGHT azithromycin Allergy Mild RASH Verified 04/05/24 17:18 Penicillins Allergy Mild Rash Verified 04/05/24 17:18 sulfamethoxazole (From Allergy Mild Unknown Verified 04/05/24 17:18 Bactrim) trimethoprim (From Bactrim) Allergy Mild Unknown Verified 04/05/24 17:18 nitrofurantoin Allergy Unknown Hives Verified 04/05/24 17:18 Akohxxm-MWC-KvQ Reductase AdvReac Unknown MUSCLE Verified 04/05/24 17:18 Inhibitor (Txsvyzt-Nui-Drp WEAKNESS Reductase Inhibitor) acetaminophen (From Tylenol) AdvReac constipatio Verified 04/05/24 17:18 n hydrocodone AdvReac Other Verified 04/05/24 17:18 STEROIDS AdvReac Unknown Unknown Uncoded 04/05/24 17:18 <Philly Wolfe, SALESPERSON [employer] - Last Filed: 04/05/24 18:39> Review of Systems Review of Systems: All systems reviewed & are unremarkable except as noted in HPI and below <Lisset Gibson APRN - Last Filed: 04/06/24 00:09> PMFSH Past Medical History Medical History: Medical History Statin intolerance Kidney disease Arthritis H/O vaginal delivery Endometriosis Hypothyroidism <Philly Wolfe - Last Filed: 04/05/24 18:39> Surgical History Surgical History: Surgical History S/P oophorectomy H/O dilation and curettage Hx of tonsillectomy H/O: hysterectomy <Philly Wolfe - Last Filed: 04/05/24 18:39> Family History Family History: Family History Grandparent Carcinoma of colon Mother Family history of malignant neoplasm of breast in first degree relative Son Family history of alcoholism Depression Sibling Diabetes mellitus Heart disease Other Hypertension <Philly Wolfe - Last Filed: 04/05/24 18:39> Social History Social History: Social History Social History: Smoking status: Never smoker Second hand tobacco smoke exposure: No Alcohol intake: never Substance use: never Substance use type: does not use Do You Feel Safe in your Home?: Yes Lack of Transportation: No Lack of Food: Never True Current Housing: I Have Housing Concerned About Future Housing: No Difficulty Paying Gas/Electric Bills: No Difficulty Paying for Meds: No Currently Unemployed: No Education: Master's Degree or Higher Difficulty w/ Childcare or Family Care: No Living arrangements: with family Occupation/Education: retired Gender identity (if verbalized by the patient): Female Sexual Orientation (if Verbalized by the Patient): Straight or Heterosexual Spiritual care concerns: No <Philly Wolfe - Last Filed: 04/05/24 18:39> Exam Narrative: GENERAL: Well appearing, well-nourished, non-toxic, in no acute distress. HEAD: Normocephalic, atraumatic. NECK: Supple. No adenopathy, no masses. RESPIRATORY: Airway patent, respirations nonlabored. Clear to auscultation bilaterally, no rales, rhonchi, wheezing. CARDIOVASCULAR: Regular rate and rhythm without murmurs, rubs, or gallops. Peripheral pulses 2+ and equal bilaterally. ABDOMINAL: Soft, RLQ tendernes with palpation, nondistended, no hepatosplenomegaly. Normoactive BS. MUSCULOSKELETAL: Moves all extremities. Strength/ROM intact without gross deformities. SKIN: Warm, dry, normal color. No rashes. NEURO: A&O X3. Speech clear. Cranial nerves II-XII grossly intact. No ataxic movements. PSYCHIATRIC: Appropriate mood and affect. Normal interaction. <Lisset Gibson APRN - Last Filed: 04/06/24 00:09> Course MECHANICAL SYSTEM TECHNICIAN/PA Physician Supervision Patient's HPI, Exam, and MDM were reviewed and I agreed with the workup and disposition done in the emergency department by the MLP. I was available for consultation, but was not directly involved with patient's care nor did I evaluate the patient. <Hector Rowan MD - Last Filed: 04/06/24 08:14> Vital Signs Vital signs: Vital Signs Temperature 36.4 C 04/05/24 17:12 Pulse Rate 73 04/05/24 17:12 Respiratory Rate 20 04/05/24 17:12 Blood Pressure 161/78 H 04/05/24 17:12 Pulse Oximetry 99 04/05/24 17:12 Oxygen Delivery Room Air 04/05/24 17:12 Temperature 36.3 C L 04/06/24 05:46 Pulse Rate 67 04/06/24 05:46 Respiratory Rate 18 04/06/24 05:46 Blood Pressure 148/66 H 04/06/24 05:46 Pulse Oximetry 97 04/06/24 05:46 Oxygen Delivery Room Air 04/06/24 00:10 <Philly Wolfe APRN - Last Filed: 04/05/24 18:39> Vital Signs Temperature 36.4 C 04/05/24 17:12 Pulse Rate 73 04/05/24 17:12 Respiratory Rate 20 04/05/24 17:12 Blood Pressure 161/78 H 04/05/24 17:12 Pulse Oximetry 99 04/05/24 17:12 Oxygen Delivery Room Air 04/05/24 17:12 Temperature 36.3 C L 04/06/24 05:46 Pulse Rate 67 04/06/24 05:46 Respiratory Rate 18 04/06/24 05:46 Blood Pressure 148/66 H 04/06/24 05:46 Pulse Oximetry 97 04/06/24 05:46 Oxygen Delivery Room Air 04/06/24 00:10 <Lisset Gibson APRN - Last Filed: 04/06/24 00:09> Vital Signs Temperature 36.4 C 04/05/24 17:12 Pulse Rate 73 04/05/24 17:12 Respiratory Rate 20 04/05/24 17:12 Blood Pressure 161/78 H 04/05/24 17:12 Pulse Oximetry 99 04/05/24 17:12 Oxygen Delivery Room Air 04/05/24 17:12 Temperature 36.3 C L 04/06/24 05:46 Pulse Rate 67 04/06/24 05:46 Respiratory Rate 18 04/06/24 05:46 Blood Pressure 148/66 H 04/06/24 05:46 Pulse Oximetry 97 04/06/24 05:46 Oxygen Delivery Room Air 04/06/24 00:10 <Hector Rowan MD - Last Filed: 04/06/24 08:14> Medical Decision Making MDM Narrative Medical decision making narrative: Amada Gayle is a 73 y/o female with complaints of right lower abdominal pain that started at 1130 today. She states she has had BM today and that did not help her pain. She has had an appendectomy and both ovaries removed. She states that now she is having a lot of abdominal distention, still able to pass gas. Reports nausea/ no vomiting/ Last ate today at around 1200 Bowel sounds present throughout + pain with palpation Labs Ordered: CBC, CMP, lactic acid, lipase, urinalysis Imaging Ordered: Abdomen/pelvis CT scan Medications Ordered: 1 L normal saline IV bolus Results: Patient's abdominal CT scan indicates a cecal volvulus. Diagnosis: Cecal Volvulus Consults: general surgery ([id number])-advised pt be admitted to the hospital and remains NPO Patient Education/Shared MDM: Results shared with patient and her . Patient offered Toradol for pain relief but she declined. It was advised that patient be admitted to hospital. She and her verbalized understanding and agreement this plan. Patient was told she may require surgery for this condition. [id number]-spoke with hospitalist who was in agreement for plan with admission. She requested patient morphine p.r.n. order, Zofran p.r.n. or, and D5 0.45 at 70 an hour for maintenance fluids. <Lisset Gibson, [employer]ESPERSON [employer] - Last Filed: 04/06/24 00:09> Differential Diagnosis Differential Diagnosis: Bowel obstruction, cecal volvulus, constipation, gastritis, colitis <Lisset Gibson, SALESPERSON [employer] - Last Filed: 04/06/24 00:09> Vital Signs Vital Signs: Vital Signs Temperature 36.4 C 04/05/24 17:12 Pulse Rate 73 04/05/24 17:12 Respiratory Rate 20 04/05/24 17:12 Blood Pressure 161/78 H 04/05/24 17:12 Pulse Oximetry 99 04/05/24 17:12 Oxygen Delivery Room Air 04/05/24 17:12 Temperature 36.3 C L 04/06/24 05:46 Pulse Rate 67 04/06/24 05:46 Respiratory Rate 18 04/06/24 05:46 Blood Pressure 148/66 H 04/06/24 05:46 Pulse Oximetry 97 04/06/24 05:46 Oxygen Delivery Room Air 04/06/24 00:10 <Philly Wolfe, SALESPERSON [employer] - Last Filed: 04/05/24 18:39> Vital Signs Temperature 36.4 C 04/05/24 17:12 Pulse Rate 73 04/05/24 17:12 Respiratory Rate 20 04/05/24 17:12 Blood Pressure 161/78 H 04/05/24 17:12 Pulse Oximetry 99 04/05/24 17:12 Oxygen Delivery Room Air 04/05/24 17:12 Temperature 36.3 C L 04/06/24 05:46 Pulse Rate 67 04/06/24 05:46 Respiratory Rate 18 04/06/24 05:46 Blood Pressure 148/66 H 04/06/24 05:46 Pulse Oximetry 97 04/06/24 05:46 Oxygen Delivery Room Air 04/06/24 00:10 <Lisset Gibson, SALESPERSON [employer] - Last Filed: 04/06/24 00:09> Vital Signs Temperature 36.4 C 04/05/24 17:12 Pulse Rate 73 04/05/24 17:12 Respiratory Rate 20 04/05/24 17:12 Blood Pressure 161/78 H 04/05/24 17:12 Pulse Oximetry 99 04/05/24 17:12 Oxygen Delivery Room Air 04/05/24 17:12 Temperature 36.3 C L 04/06/24 05:46 Pulse Rate 67 04/06/24 05:46 Respiratory Rate 18 04/06/24 05:46 Blood Pressure 148/66 H 04/06/24 05:46 Pulse Oximetry 97 04/06/24 05:46 Oxygen Delivery Room Air 04/06/24 00:10 <Hector Rowan MD - Last Filed: 04/06/24 08:14> Lab Data Lab results reviewed: Yes I reviewed the patient's lab results. <Lisset Gibson SALESPERSON [employer] - Last Filed: 04/06/24 00:09> Result diagrams: 04/05/24 21:37 04/05/24 21:37 <Philly Wolfe SALESPERSON [employer] - Last Filed: 04/05/24 18:39> Labs: Lab Results 04/05/24 04/05/24 Range/Units 21:37 21:43 WBC 9.0 (4.5-10.0) K/mm3 RBC 3.97 L (4.2-5.4) M/mm3 Hgb 11.8 L (12.0-15.0) g/dL Hct 36.7 L (37.0-47.0) % MCV 92.4 (80-100) fl MCH 29.7 (26-34) pg MCHC 32.2 (32-36) g/dl RDW 12.9 (11.5-14.5) % Plt Count 259 (150-375) k/mm3 MPV 8.6 (7.4-10.4) fl Immature Gran % (Auto) 0.2 (0-0.5) % Neut % (Auto) 75.2 H (45.5-73.1) % Lymph % (Auto) 20.0 (18.3-44.2) % [place] % (Auto) 4.0 (2.6-8.5) % Eos % (Auto) 0.3 (0-4.4) % Baso % (Auto) 0.3 (0.2-1.2) % Lymph # (Auto) 1.80 (0.9-3.2) K/mm3 [place] # (Auto) 0.4 (0.1-0.6) K/mm3 Eos # (Auto) 0.0 (0-0.3) K/mm3 Baso # (Auto) 0.0 (0.0-0.1) K/mm3 Abs Immat Gran (auto) 0.02 (0.00-0.031) K/mm3 Absolute Neuts (auto) 6.8 H (1.3-6.7) K/mm3 Absolute Nucleated RBC 0.000 (0.0-0.012) K/mm3 Nucleated RBC % 0.0 (0.0-0.2) % Sodium 137 (137-145) mmol/L Potassium 4.4 (3.4-5.0) mmol/L Chloride 104 (98-107) mmol/L Carbon Dioxide 25 (22-30) mmol/L Anion Gap 8 (4-12) mmol/L BUN 15 (7-17) mg/dL Creatinine 1.05 H (0.7-1.0) mg/dL Estim Creat Clear Calc 37 ml/min Estimated GFR 51 L (59 - ) Glucose 103 (65-110) mg/dL Lactic Acid 0.6 L (0.7-2.0) mmol/L Calcium 9.1 (8.4-10.2) mg/dL Total Bilirubin 0.5 (0.2-1.3) mg/dL AST 26 (14-36) U/L ALT 17 (6-35) U/L Alkaline Phosphatase 65 (38-126) U/L Total Protein 7.0 (6.3-8.2) g/dL Albumin 4.3 (3.5-5.1) g/dL Lipase 1578 H (23-300) U/L Urine Color Yellow (Yellow) Urine Appearance Cloudy H (Clear) Urine pH 6.5 (5.0-9.0) Ur Specific [place] 1.017 (1.001-1.035) Urine Protein Negative (Negative) mg/dL Urine Glucose (UA) Negative (Negative) mg/dL Urine Ketones Negative (Negative) mg/dL Ur Blood (Man) Negative (Negative) Urine Nitrate Negative (Negative) Urine Bilirubin Negative (Negative) Urine Urobilinogen 0.2 (<2.0) mg/dL Leukocyte Esterase Rfl Negative (Negative) TODD/UL Urine RBC 3-5 H (0-2) /hpf Urine WBC 0-5 (0-3) /hpf Ur Squamous Epith Cells None seen (Few) /hpf Urine Bacteria None seen /hpf Urine Casts 0-2 <Philly Wolfe, SALESPERSON [employer] - Last Filed: 04/05/24 18:39> Lab Results 04/05/24 04/05/24 Range/Units 21:37 21:43 WBC 9.0 (4.5-10.0) K/mm3 RBC 3.97 L (4.2-5.4) M/mm3 Hgb 11.8 L (12.0-15.0) g/dL Hct 36.7 L (37.0-47.0) % MCV 92.4 (80-100) fl MCH 29.7 (26-34) pg MCHC 32.2 (32-36) g/dl RDW 12.9 (11.5-14.5) % Plt Count 259 (150-375) k/mm3 MPV 8.6 (7.4-10.4) fl Immature Gran % (Auto) 0.2 (0-0.5) % Neut % (Auto) 75.2 H (45.5-73.1) % Lymph % (Auto) 20.0 (18.3-44.2) % [place] % (Auto) 4.0 (2.6-8.5) % Eos % (Auto) 0.3 (0-4.4) % Baso % (Auto) 0.3 (0.2-1.2) % Lymph # (Auto) 1.80 (0.9-3.2) K/mm3 [place] # (Auto) 0.4 (0.1-0.6) K/mm3 Eos # (Auto) 0.0 (0-0.3) K/mm3 Baso # (Auto) 0.0 (0.0-0.1) K/mm3 Abs Immat Gran (auto) 0.02 (0.00-0.031) K/mm3 Absolute Neuts (auto) 6.8 H (1.3-6.7) K/mm3 Absolute Nucleated RBC 0.000 (0.0-0.012) K/mm3 Nucleated RBC % 0.0 (0.0-0.2) % Sodium 137 (137-145) mmol/L Potassium 4.4 (3.4-5.0) mmol/L Chloride 104 (98-107) mmol/L Carbon Dioxide 25 (22-30) mmol/L Anion Gap 8 (4-12) mmol/L BUN 15 (7-17) mg/dL Creatinine 1.05 H (0.7-1.0) mg/dL Estim Creat Clear Calc 37 ml/min Estimated GFR 51 L (59 - ) Glucose 103 (65-110) mg/dL Lactic Acid 0.6 L (0.7-2.0) mmol/L Calcium 9.1 (8.4-10.2) mg/dL Total Bilirubin 0.5 (0.2-1.3) mg/dL AST 26 (14-36) U/L ALT 17 (6-35) U/L Alkaline Phosphatase 65 (38-126) U/L Total Protein 7.0 (6.3-8.2) g/dL Albumin 4.3 (3.5-5.1) g/dL Lipase 1578 H (23-300) U/L Urine Color Yellow (Yellow) Urine Appearance Cloudy H (Clear) Urine pH 6.5 (5.0-9.0) Ur Specific [place] 1.017 (1.001-1.035) Urine Protein Negative (Negative) mg/dL Urine Glucose (UA) Negative (Negative) mg/dL Urine Ketones Negative (Negative) mg/dL Ur Blood (Man) Negative (Negative) Urine Nitrate Negative (Negative) Urine Bilirubin Negative (Negative) Urine Urobilinogen 0.2 (<2.0) mg/dL Leukocyte Esterase Rfl Negative (Negative) TODD/UL Urine RBC 3-5 H (0-2) /hpf Urine WBC 0-5 (0-3) /hpf Ur Squamous Epith Cells None seen (Few) /hpf Urine Bacteria None seen /hpf Urine Casts 0-2 <Lisset Gibson, [employer]ESPERSON [employer] - Last Filed: 04/06/24 00:09> Lab Results 04/05/24 04/05/24 Range/Units 21:37 21:43 WBC 9.0 (4.5-10.0) K/mm3 RBC 3.97 L (4.2-5.4) M/mm3 Hgb 11.8 L (12.0-15.0) g/dL Hct 36.7 L (37.0-47.0) % MCV 92.4 (80-100) fl MCH 29.7 (26-34) pg MCHC 32.2 (32-36) g/dl RDW 12.9 (11.5-14.5) % Plt Count 259 (150-375) k/mm3 MPV 8.6 (7.4-10.4) fl Immature Gran % (Auto) 0.2 (0-0.5) % Neut % (Auto) 75.2 H (45.5-73.1) % Lymph % (Auto) 20.0 (18.3-44.2) % [place] % (Auto) 4.0 (2.6-8.5) % Eos % (Auto) 0.3 (0-4.4) % Baso % (Auto) 0.3 (0.2-1.2) % Lymph # (Auto) 1.80 (0.9-3.2) K/mm3 [place] # (Auto) 0.4 (0.1-0.6) K/mm3 Eos # (Auto) 0.0 (0-0.3) K/mm3 Baso # (Auto) 0.0 (0.0-0.1) K/mm3 Abs Immat Gran (auto) 0.02 (0.00-0.031) K/mm3 Absolute Neuts (auto) 6.8 H (1.3-6.7) K/mm3 Absolute Nucleated RBC 0.000 (0.0-0.012) K/mm3 Nucleated RBC % 0.0 (0.0-0.2) % Sodium 137 (137-145) mmol/L Potassium 4.4 (3.4-5.0) mmol/L Chloride 104 (98-107) mmol/L Carbon Dioxide 25 (22-30) mmol/L Anion Gap 8 (4-12) mmol/L BUN 15 (7-17) mg/dL Creatinine 1.05 H (0.7-1.0) mg/dL Estim Creat Clear Calc 37 ml/min Estimated GFR 51 L (59 - ) Glucose 103 (65-110) mg/dL Lactic Acid 0.6 L (0.7-2.0) mmol/L Calcium 9.1 (8.4-10.2) mg/dL Total Bilirubin 0.5 (0.2-1.3) mg/dL AST 26 (14-36) U/L ALT 17 (6-35) U/L Alkaline Phosphatase 65 (38-126) U/L Total Protein 7.0 (6.3-8.2) g/dL Albumin 4.3 (3.5-5.1) g/dL Lipase 1578 H (23-300) U/L Urine Color Yellow (Yellow) Urine Appearance Cloudy H (Clear) Urine pH 6.5 (5.0-9.0) Ur Specific [place] 1.017 (1.001-1.035) Urine Protein Negative (Negative) mg/dL Urine Glucose (UA) Negative (Negative) mg/dL Urine Ketones Negative (Negative) mg/dL Ur Blood (Man) Negative (Negative) Urine Nitrate Negative (Negative) Urine Bilirubin Negative (Negative) Urine Urobilinogen 0.2 (<2.0) mg/dL Leukocyte Esterase Rfl Negative (Negative) TODD/UL Urine RBC 3-5 H (0-2) /hpf Urine WBC 0-5 (0-3) /hpf Ur Squamous Epith Cells None seen (Few) /hpf Urine Bacteria None seen /hpf Urine Casts 0-2 <Hector Rowan MD - Last Filed: 04/06/24 08:14> Imaging Data Attestation: I personally reviewed and interpreted this imaging study as follows: <Lisset Gibson APRN - Last Filed: 04/06/24 00:09> Radiologist's impression: Impressions Abdomen/Pelvis CT 04/05/24 22:43 IMPRESSION: 1. Cecal volvulus. <Lisset Gibson APRN - Last Filed: 04/06/24 00:09> Discharge Plan Discharge Clinical Impression: Cecal volvulus <Philly Wolfe APRN - Last Filed: 04/05/24 18:39> Patient Disposition: Still a Patient <Philly Wolfe APRN - Last Filed: 04/05/24 18:39> Condition: Stable <Philly Wolfe APRN - Last Filed: 04/05/24 18:39>
[2024-04-05 21:44] LABS: Basophils Percent Auto 0.3 % (0.2-1.2); Eosinophils Percent Auto 0.3 % (0-4.4); Hematocrit 36.7 % (37.0-47.0); Hemoglobin 11.8 g/dL (12.0-15.0); Immature Granulocyte Absolute 0.02 K/mm3 (0.00-0.031); Immature Granulocyte Percent A 0.2 % (0-0.5); Mean Corpuscular HGB Conc 32.2 g/dl (32-36); Mean Corpuscular Hemoglobin 29.7 pg (26-34); Mean Corpuscular Volume 92.4 fl (80-100); Mean Platelet Volume 8.6 fl (7.4-10.4); Monocytes Absolute Auto 0.4 K/mm3 (0.1-0.6); Neutrophils Absolute Auto 6.8 K/mm3 (1.3-6.7); Neutrophils Percent Auto 75.2 % (45.5-73.1); Platelet Count Result 259 k/mm3 (150-375); Red Blood Count 3.97 M/mm3 (4.2-5.4); Red Cell Distribution Width 12.9 % (11.5-14.5)
[2024-04-05 21:51] LABS: Add Urine Microscopic? YES; Appearance Urine Cloudy (Clear); Bacteria Urine None Seen /hpf; Bilirubin Urine Negative (Negative); Blood Urine Negative (Negative); Color Urine Yellow (Yellow); Glucose Urine UA Negative (Negative); Ketones Urine Negative (Negative); Leukocyte Esterase Ur Negative LEU/UL (Negative); Nitrate Urine Negative (Negative); Non Pathogenic Casts 0-2; Protein Urine Negative (Negative); Specific Grav Ur 1.017 (1.001-1.035); Squamous Epithelial Cell Urine None Seen /hpf (Few); Urobilinogen Urine 0.2 mg/dL (<2.0); WBC Urine 0-5 /hpf (0-3); pH Urine 6.5 (5.0-9.0)
[2024-04-05 21:53] LABS: Lactic Acid Reflex 0.6 mmol/L (0.7-2.0)
[2024-04-05 21:54] LABS: Alanine Aminotransferase 17 U/L (6-35); Albumin Level 4.3 g/dL (3.5-5.1); Alkaline Phosphatase 65 U/L (38-126); Anion Gap 8 mmol/L (4-12); Aspartate Amino Transferase 26 U/L (14-36); Bilirubin,Total 0.5 mg/dL (0.2-1.3); Blood Urea Nitrogen 15 mg/dL (7-17); Calcium 9.1 mg/dL (8.4-10.2); Carbon Dioxide 25 mmol/L (22-30); Chloride 104 mmol/L (98-107); Estimated CRCL calculation 37 ml/min; Estimated Glomerular Filt Rate 51; Glucose 103 mg/dL (65-110); Lipase 1578 U/L (23-300); Potassium 4.4 mmol/L (3.4-5.0); Sodium 137 mmol/L (137-145)
--- OUTSIDE RECORDS SUMMARY | 2024-04-05 22:13 | XMS_ITS | Clinical Summary ---
Author Organization [facility] Address [address] [place] [id number] Phone Care Team Providers Care Slurry Tank Operator Name Role Phone Unavailable Primary Care Provider Unavailabl e Medications Medication Sig Dispensed Refills Start Date End Date Status levothyroxine (SYNTHROID, LEVOTHROID) 50 MCG tablet 01/28/2012 Active ergocalciferol (VITAMIN D-2) 47496 units capsule 1 every 2 weeks 01/11/2014 [...] Comments Blood Pressure 108/60 01/11/2014 12:01 AM EPIDEMIOLOGY INTERN Pulse 72 01/11/2014 12:01 AM EPIDEMIOLOGY INTERN Temperature 36.3 ??C (97.3 ??F) 01/11/2014 12:[address] Respiratory Rate - - Oxygen Saturation - - Inhaled Oxygen Concentration - - Weight 57.2 kg (126 lb) 01/11/2014 12:01 AM EPIDEMIOLOGY INTERN Height 167.6 cm (5' 6) 01/11/2014 12:01 AM EPIDEMIOLOGY INTERN Body Mass Index 20.34 01/11/2014 12:01 AM EPIDEMIOLOGY INTERN Plan of Treatment Not on file
--- NOTE | 2024-04-05 22:20 | ED.ABDPAIN ---
HPI - Abdominal Pain General Chief Complaint: Abdominal Pain <Lisset Gibson APRN - Last Filed: 04/06/24 22:16> Stated Complaint: severe lower abdominal pain <Lisset Gibson APRN - Last Filed: 04/06/24 22:16> Time Seen by Provider: 04/05/24 17:37 <Lisset Gibson APRN - Last Filed: 04/06/24 22:16> Related Data Home Medications: Home Medications ?Medication ?Instructions ?Recorded ?Confirmed ?Last Taken ?Type levocetirizine 5 mg tablet (Xyzal) 2.5 mg PO DAILY 04/06/23 04/06/24 Unknown History calcium 600 mg (as 1 cap PO DAILY 04/06/24 04/06/24 Unknown History carbonate)-vitamin D3 5 mcg (200 unit) capsule (Calcium 600 + D(3)) calcium polycarbophil 625 mg 1,250 mg PO DAILY 04/06/24 04/06/24 Unknown History tablet (Fiber (calcium polycarbophil)) <Lisset Gibson APRN - Last Filed: 04/06/24 22:16> Allergies/Adverse Reactions: Allergies Allergy/AdvReac Type Severity Reaction Status Date / Time tramadol Allergy Intermediate RAPID Verified 04/05/24 17:18 HEART RATE/LOSS OF WEIGHT azithromycin Allergy Mild RASH Verified 04/05/24 17:18 Penicillins Allergy Mild Rash Verified 04/05/24 17:18 sulfamethoxazole (From Allergy Mild Unknown Verified 04/05/24 17:18 Bactrim) trimethoprim (From Bactrim) Allergy Mild Unknown Verified 04/05/24 17:18 nitrofurantoin Allergy Unknown Hives Verified 04/05/24 17:18 Kqrnyqd-EAF-RlK Reductase AdvReac Unknown MUSCLE Verified 04/05/24 17:18 Inhibitor (Bgjihxg-Pag-Apw WEAKNESS Reductase Inhibitor) acetaminophen (From Tylenol) AdvReac constipatio Verified 04/05/24 17:18 n hydrocodone AdvReac Other Verified 04/05/24 17:18 STEROIDS AdvReac Unknown Unknown Uncoded 04/05/24 17:18 <Lisset Gibson APRN - Last Filed: 04/06/24 22:16> Review of Systems Review of Systems: All systems reviewed & are unremarkable except as noted in HPI and below <Lisset Gibson APRN - Last Filed: 04/06/24 22:16> PMFSH Past Medical History Medical History: Medical History Statin intolerance Kidney disease Arthritis H/O vaginal delivery Endometriosis Hypothyroidism <Lisset Gibson APRN - Last Filed: 04/06/24 22:16> Surgical History Surgical History: Surgical History History of laparotomy For endometriosis History of laparoscopy For endometriosis S/P oophorectomy H/O dilation and curettage Hx of tonsillectomy H/O: hysterectomy <Lisset Gibson APRN - Last Filed: 04/06/24 22:16> Family History Family History: Family History Grandparent Carcinoma of colon Mother Family history of malignant neoplasm of breast in first degree relative Son Family history of alcoholism Depression Sibling Diabetes mellitus Heart disease Other Hypertension <Lisset Gibson APRN - Last Filed: 04/06/24 22:16> Social History Social History: Social History Social History: Smoking status: Never smoker Second hand tobacco smoke exposure: No Alcohol intake: never Substance use: never Substance use type: does not use Do You Feel Safe in your Home?: Yes Lack of Transportation: No Lack of Food: Never True Current Housing: I Have Housing Concerned About Future Housing: No Difficulty Paying Gas/Electric Bills: No Difficulty Paying for Meds: No Currently Unemployed: No Education: Master's Degree or Higher Difficulty w/ Childcare or Family Care: No Living arrangements: with family Occupation/Education: retired Gender identity (if verbalized by the patient): Female Sexual Orientation (if Verbalized by the Patient): Straight or Heterosexual Spiritual care concerns: No <Lisset Gibson APRN - Last Filed: 04/06/24 22:16> Exam Narrative: GENERAL: Well appearing, well-nourished, non-toxic, in no acute distress. HEAD: Normocephalic, atraumatic. NECK: Supple. No adenopathy, no masses. RESPIRATORY: Airway patent, respirations nonlabored. Clear to auscultation bilaterally, no rales, rhonchi, wheezing. CARDIOVASCULAR: Regular rate and rhythm without murmurs, rubs, or gallops. Peripheral pulses 2+ and equal bilaterally. ABDOMINAL: Soft, RLQ tendernes with palpation, nondistended, no hepatosplenomegaly. Normoactive BS. MUSCULOSKELETAL: Moves all extremities. Strength/ROM intact without gross deformities. SKIN: Warm, dry, normal color. No rashes. NEURO: A&O X3. Speech clear. Cranial nerves II-XII grossly intact. No ataxic movements. PSYCHIATRIC: Appropriate mood and affect. Normal interaction. 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 I was available for consultation, but was not directly involved with patient's care nor did I evaluate the patient. <Hector Rowan MD - Last Filed: 04/07/24 04:08> Vital Signs Vital signs: Vital Signs Temperature 36.4 C 04/05/24 17:12 Pulse Rate 73 04/05/24 17:12 Respiratory Rate 20 04/05/24 17:12 Blood Pressure 161/78 H 04/05/24 17:12 Pulse Oximetry 99 04/05/24 17:12 Oxygen Delivery Room Air 04/05/24 17:12 Temperature 37.2 C 04/07/24 00:17 Pulse Rate 78 04/07/24 00:17 Respiratory Rate 14 04/07/24 00:17 Blood Pressure 130/60 04/07/24 00:17 Pulse Oximetry 97 04/07/24 00:17 Oxygen Delivery Room Air 04/06/24 16:22 Oxygen Flow Rate 8 04/06/24 15:55 <Lisset Gibson APRN - Last Filed: 04/06/24 22:16> Vital Signs Temperature 36.4 C 04/05/24 17:12 Pulse Rate 73 04/05/24 17:12 Respiratory Rate 20 04/05/24 17:12 Blood Pressure 161/78 H 04/05/24 17:12 Pulse Oximetry 99 04/05/24 17:12 Oxygen Delivery Room Air 04/05/24 17:12 Temperature 37.2 C 04/07/24 00:17 Pulse Rate 78 04/07/24 00:17 Respiratory Rate 14 04/07/24 00:17 Blood Pressure 130/60 04/07/24 00:17 Pulse Oximetry 97 04/07/24 00:17 Oxygen Delivery Room Air 04/06/24 16:22 Oxygen Flow Rate 8 04/06/24 15:55 <Hector Rowan MD - Last Filed: 04/07/24 04:08> MDM - Abdominal Pain Lab Data Result diagrams: 04/06/24 09:32 04/06/24 09:32 <Lisset Gibson APRN - Last Filed: 04/06/24 22:16> Labs: Lab Results 04/05/24 04/05/24 Range/Units 21:37 21:43 WBC 9.0 (4.5-10.0) K/mm3 RBC 3.97 L (4.2-5.4) M/mm3 Hgb 11.8 L (12.0-15.0) g/dL Hct 36.7 L (37.0-47.0) % MCV 92.4 (80-100) fl MCH 29.7 (26-34) pg MCHC 32.2 (32-36) g/dl RDW 12.9 (11.5-14.5) % Plt Count 259 (150-375) k/mm3 MPV 8.6 (7.4-10.4) fl Immature Gran % (Auto) 0.2 (0-0.5) % Neut % (Auto) 75.2 H (45.5-73.1) % Lymph % (Auto) 20.0 (18.3-44.2) % [place] % (Auto) 4.0 (2.6-8.5) % Eos % (Auto) 0.3 (0-4.4) % Baso % (Auto) 0.3 (0.2-1.2) % Lymph # (Auto) 1.80 (0.9-3.2) K/mm3 [place] # (Auto) 0.4 (0.1-0.6) K/mm3 Eos # (Auto) 0.0 (0-0.3) K/mm3 Baso # (Auto) 0.0 (0.0-0.1) K/mm3 Abs Immat Gran (auto) 0.02 (0.00-0.031) K/mm3 Absolute Neuts (auto) 6.8 H (1.3-6.7) K/mm3 Absolute Nucleated RBC 0.000 (0.0-0.012) K/mm3 Nucleated RBC % 0.0 (0.0-0.2) % Sodium 137 (137-145) mmol/L Potassium 4.4 (3.4-5.0) mmol/L Chloride 104 (98-107) mmol/L Carbon Dioxide 25 (22-30) mmol/L Anion Gap 8 (4-12) mmol/L BUN 15 (7-17) mg/dL Creatinine 1.05 H (0.7-1.0) mg/dL Estim Creat Clear Calc 37 ml/min Estimated GFR 51 L (59 - ) Glucose 103 (65-110) mg/dL Lactic Acid 0.6 L (0.7-2.0) mmol/L Calcium 9.1 (8.4-10.2) mg/dL Total Bilirubin 0.5 (0.2-1.3) mg/dL AST 26 (14-36) U/L ALT 17 (6-35) U/L Alkaline Phosphatase 65 (38-126) U/L Total Protein 7.0 (6.3-8.2) g/dL Albumin 4.3 (3.5-5.1) g/dL Lipase 1578 H (23-300) U/L Urine Color Yellow (Yellow) Urine Appearance Cloudy H (Clear) Urine pH 6.5 (5.0-9.0) Ur Specific [place] 1.017 (1.001-1.035) Urine Protein Negative (Negative) mg/dL Urine Glucose (UA) Negative (Negative) mg/dL Urine Ketones Negative (Negative) mg/dL Ur Blood (Man) Negative (Negative) Urine Nitrate Negative (Negative) Urine Bilirubin Negative (Negative) Urine Urobilinogen 0.2 (<2.0) mg/dL Leukocyte Esterase Rfl Negative (Negative) TODD/UL Urine RBC 3-5 H (0-2) /hpf Urine WBC 0-5 (0-3) /hpf Ur Squamous Epith Cells None seen (Few) /hpf Urine Bacteria None seen /hpf Urine Casts 0-2 <Lisset Gibson, TEAM LEAD - Last Filed: 04/06/24 22:16> Lab Results 04/05/24 04/05/24 Range/Units 21:37 21:43 WBC 9.0 (4.5-10.0) K/mm3 RBC 3.97 L (4.2-5.4) M/mm3 Hgb 11.8 L (12.0-15.0) g/dL Hct 36.7 L (37.0-47.0) % MCV 92.4 (80-100) fl MCH 29.7 (26-34) pg MCHC 32.2 (32-36) g/dl RDW 12.9 (11.5-14.5) % Plt Count 259 (150-375) k/mm3 MPV 8.6 (7.4-10.4) fl Immature Gran % (Auto) 0.2 (0-0.5) % Neut % (Auto) 75.2 H (45.5-73.1) % Lymph % (Auto) 20.0 (18.3-44.2) % [place] % (Auto) 4.0 (2.6-8.5) % Eos % (Auto) 0.3 (0-4.4) % Baso % (Auto) 0.3 (0.2-1.2) % Lymph # (Auto) 1.80 (0.9-3.2) K/mm3 [place] # (Auto) 0.4 (0.1-0.6) K/mm3 Eos # (Auto) 0.0 (0-0.3) K/mm3 Baso # (Auto) 0.0 (0.0-0.1) K/mm3 Abs Immat Gran (auto) 0.02 (0.00-0.031) K/mm3 Absolute Neuts (auto) 6.8 H (1.3-6.7) K/mm3 Absolute Nucleated RBC 0.000 (0.0-0.012) K/mm3 Nucleated RBC % 0.0 (0.0-0.2) % Sodium 137 (137-145) mmol/L Potassium 4.4 (3.4-5.0) mmol/L Chloride 104 (98-107) mmol/L Carbon Dioxide 25 (22-30) mmol/L Anion Gap 8 (4-12) mmol/L BUN 15 (7-17) mg/dL Creatinine 1.05 H (0.7-1.0) mg/dL Estim Creat Clear Calc 37 ml/min Estimated GFR 51 L (59 - ) Glucose 103 (65-110) mg/dL Lactic Acid 0.6 L (0.7-2.0) mmol/L Calcium 9.1 (8.4-10.2) mg/dL Total Bilirubin 0.5 (0.2-1.3) mg/dL AST 26 (14-36) U/L ALT 17 (6-35) U/L Alkaline Phosphatase 65 (38-126) U/L Total Protein 7.0 (6.3-8.2) g/dL Albumin 4.3 (3.5-5.1) g/dL Lipase 1578 H (23-300) U/L Urine Color Yellow (Yellow) Urine Appearance Cloudy H (Clear) Urine pH 6.5 (5.0-9.0) Ur Specific [place] 1.017 (1.001-1.035) Urine Protein Negative (Negative) mg/dL Urine Glucose (UA) Negative (Negative) mg/dL Urine Ketones Negative (Negative) mg/dL Ur Blood (Man) Negative (Negative) Urine Nitrate Negative (Negative) Urine Bilirubin Negative (Negative) Urine Urobilinogen 0.2 (<2.0) mg/dL Leukocyte Esterase Rfl Negative (Negative) TODD/UL Urine RBC 3-5 H (0-2) /hpf Urine WBC 0-5 (0-3) /hpf Ur Squamous Epith Cells None seen (Few) /hpf Urine Bacteria None seen /hpf Urine Casts 0-2 <Hector Rowan MD - Last Filed: 04/07/24 04:08> Imaging Data Radiologist's impression: ITS Impressions Abdomen/Pelvis CT 04/05/24 22:43 IMPRESSION: 1. Cecal volvulus. <Lisset Gibson APRN - Last Filed: 04/06/24 22:16> ITS Impressions Abdomen/Pelvis CT 04/05/24 22:43 IMPRESSION: 1. Cecal volvulus. <Hector Rowan MD - Last Filed: 04/07/24 04:08> Discharge Plan Discharge Clinical Impression: Cecal volvulus <Lisset Gibson APRN - Last Filed: 04/06/24 22:16> Patient Disposition: Still a Patient <Lisset Gibson APRN - Last Filed: 04/06/24 22:16> Condition: Stable <Lisset Gibson APRN - Last Filed: 04/06/24 22:16> [place] Coma Scale Eyes: Open <Lisset Gibson APRN - Last Filed: 04/06/24 22:16> Verbal: Oriented and Alert <Lisset Gibson APRN - Last Filed: 04/06/24 22:16> Motor: Follows Commands <Lisset Gibson APRN - Last Filed: 04/06/24 22:16> [place] Coma Total Score: 15 <Lisset Gibson APRN - Last Filed: 04/06/24 22:16> 15 <Hector Rowan MD - Last Filed: 04/07/24 04:08>
[2024-04-05] MEDS: SODIUM CHLORIDE 0.9% IV 1,000 ML 999 ML IV CONT (23:31)
[2024-04-06] VITALS (16 sets, daily range): BP systolic 114–170; BP diastolic 55–89; PULSE 64–90; RESP 12–20; TEMP 36.2–36.6; O2SAT 92–100; BMI 19.9
[2024-04-06] MEDS: DEXTROSE 5%/0.45% SOD CHL 1,000 ML 70 ML IV CONT (01:02)
--- NOTE | 2024-04-06 01:06 | ADMGEN ---
This patient, Amada Gayle, was admitted to 3 Medical Room 345-01. Patient/family oriented to hospital policies and general routines including ID bracelet, bed and alarms, visiting hours, pain management, procedures, bathroom and other care routines, personal items, smoking policy, room service/diet, and visiting hours. Information on how to activate the Rapid Response Team has been discussed. Patient/Family are encouraged to report perceived risks to care and to ask questions if they do not understand what they are told or what they should do.
[2024-04-06] MEDS: KETOROLAC 15 MG/ML VIAL (*BKC) IV PUSH (03:18)
--- NOTE | 2024-04-06 08:47 | P.HP_ITS ---
H&P: HPI History of Present Illness Date/Time: 04/06/24 08:47 Chief Complaint: Abdomen pain Narrative: 73 years old lady with history of hysterectomy, oophorectomy, CKD stage 3, hypothyroidism, present ED with chief complaint of abdomen pain. Patient had a sudden onset abdomen pain about 11:30 a.m. yesterday, constant on cramping, locating right low abdomen. Patient denies nausea vomiting. Patient had a lillian wel movement yesterday afternoon. Patient denies fever, chills, also denies chest pain palpitation shortness breath, dysuria. The pain became intolerable yesterday evening, therefore patient came to ED for evaluation treatment. Upon arrival in ED, patient was afebrile, blood pressure stable, pulse ox 99 on room air, CBC showed hemoglobin 11.8, white blood cell within normal limit, chemistry unremarkable, urinalysis unremarkable. CT abdomen shows cecal volvulus. Review of Systems Review of Systems: ROS negative except above PMFSH Past Medical History Medical History (Updated 04/06/24 @ 08:14 by Hector Rowan MD) Statin intolerance Kidney disease Arthritis H/O vaginal delivery Endometriosis Hypothyroidism Surgical History Surgical History History of laparotomy For endometriosis History of laparoscopy For endometriosis S/P oophorectomy H/O dilation and curettage Hx of tonsillectomy H/O: hysterectomy Family History Family History Grandparent Carcinoma of colon Mother Family history of malignant neoplasm of breast in first degree relative Son Family history of alcoholism Depression Sibling Diabetes mellitus Heart disease Other Hypertension Social History Social History Social History: Smoking status: Never smoker Second hand tobacco smoke exposure: No Alcohol intake: never Substance use: never Substance use type: does not use Do You Feel Safe in your Home?: Yes Lack of Transportation: No Lack of Food: Never True Current Housing: I Have Housing Concerned About Future Housing: No Difficulty Paying Gas/Electric Bills: No Difficulty Paying for Meds: No Currently Unemployed: No Education: Master's Degree or Higher Difficulty w/ Childcare or Family Care: No Living arrangements: with family Occupation/Education: retired Gender identity (if verbalized by the patient): Female Sexual Orientation (if Verbalized by the Patient): Straight or Heterosexual Spiritual care concerns: No Meds Home Medications and Allergies Home Medications ?Medication ?Instructions ?Recorded ?Confirmed ?Type ondansetron 4 mg disintegrating 4 mg PO Q8H PRN nausea and 12/25/21 04/06/24 Rx tablet vomiting #30 tabs levocetirizine 5 mg tablet (Xyzal) 2.5 mg PO DAILY 04/06/23 04/06/24 History levothyroxine 50 mcg tablet 50 mcg PO DAILY #90 tabs 08/03/23 04/06/24 Rx ezetimibe 10 mg tablet (Zetia) 10 mg PO DAILY #30 tabs 10/21/23 04/06/24 Rx ergocalciferol (vitamin D2) 1,250 See Rx Instructions .Route 02/16/24 04/06/24 Rx mcg (50,000 unit) capsule .COMPLEX #6 caps calcium 600 mg (as 1 cap PO DAILY 04/06/24 04/06/24 History carbonate)-vitamin D3 5 mcg (200 unit) capsule (Calcium 600 + D(3)) calcium polycarbophil 625 mg 1,250 mg PO DAILY 04/06/24 04/06/24 History tablet (Fiber (calcium polycarbophil)) Allergies Allergy/AdvReac Type Severity Reaction Status Date / Time tramadol Allergy Intermediate RAPID Verified 04/05/24 17:18 HEART RATE/LOSS OF WEIGHT azithromycin Allergy Mild RASH Verified 04/05/24 17:18 Penicillins Allergy Mild Rash Verified 04/05/24 17:18 sulfamethoxazole (From Allergy Mild Unknown Verified 04/05/24 17:18 Bactrim) trimethoprim (From Bactrim) Allergy Mild Unknown Verified 04/05/24 17:18 nitrofurantoin Allergy Unknown Hives Verified 04/05/24 17:18 Csdxzut-IJW-QjC Reductase AdvReac Unknown MUSCLE Verified 04/05/24 17:18 Inhibitor (Issizwk-Mzd-Kua WEAKNESS Reductase Inhibitor) acetaminophen (From Tylenol) AdvReac constipatio Verified 04/05/24 17:18 n hydrocodone AdvReac Other Verified 04/05/24 17:18 STEROIDS AdvReac Unknown Unknown Uncoded 04/05/24 17:18 Vital Signs Vital Signs - 24 hr 04/05/24 17:12 04/06/24 00:00 04/06/24 00:10 Temperature 97.6 F 97.1 F L Pulse Rate 73 81 Respiratory Rate 20 16 Blood Pressure 161/78 H 168/71 H Pulse Oximetry 99 97 Oxygen Delivery Room Air Room Air 04/06/24 00:53 04/06/24 05:46 Temperature 97.4 F L Pulse Rate 67 Respiratory Rate 18 Blood Pressure 149/89 H 148/66 H Pulse Oximetry 97 Oxygen Delivery Exam Narrative: GENERAL: Pleasant, in no acute distress. Well-nourished. - EYES: EOMI. Anicteric. - HENT: Moist mucous membranes. - LUNGS: Clear to auscultation bilateral ly, no wheezing, rhonchi, or rales. - CARDIOVASCULAR: Regular rate and rhyth m. No murmur. No JVD. - ABDOMEN: Soft, right lower quadrant te nder and non-distended. No palpable masses. - EXTREMITIES: No edema. Peripheral puls es 2+. Non-tender. - NEUROLOGIC: No focal neurological defi cits. CN II-XII grossly intact. - PSYCHIATRIC: Awake, Alert and oriented x 3. Appropriate mood and affect. - SKIN: No rashes or lesions. Warm. - LYMPH: No cervical lymphadenopathy. H&P: Results Labs Labs: Short CBC 04/05/24 Range/Units 21:37 WBC 9.0 (4.5-10.0) K/mm3 Hgb 11.8 L (12.0-15.0) g/dL Hct 36.7 L (37.0-47.0) % Plt Count 259 (150-375) k/mm3 BMP 04/05/24 21:37 Sodium 137 Potassium 4.4 Chloride 104 Carbon Dioxide 25 BUN 15 Creatinine 1.05 H Glucose 103 Calcium 9.1 Liver Function 04/05/24 Range/Units 21:37 Total Bilirubin 0.5 (0.2-1.3) mg/dL AST 26 (14-36) U/L ALT 17 (6-35) U/L Alkaline Phosphatase 65 (38-126) U/L Albumin 4.3 (3.5-5.1) g/dL Urine 04/05/24 Range/Units 21:43 Urine Color Yellow (Yellow) Urine Appearance Cloudy H (Clear) Urine pH 6.5 (5.0-9.0) Ur Specific [place] 1.017 (1.001-1.035) Urine Protein Negative (Negative) mg/dL Urine Glucose (UA) Negative (Negative) mg/dL Assessment and Plan Assessment and plan (1) Hypothyroidism: Code(s): E03.9 - Hypothyroidism, unspecified Status: Acute (2) GERD (gastroesophageal reflux disease): Code(s): K21.9 - Gastro-esophageal reflux disease without esophagitis Status: Acute (3) Cecal volvulus: Code(s): K56.2 - Volvulus Status: Acute Plan Cecum volvulus Patient has history of hysterectomy and oophorectomy. Sudden onset abdomen pain CT shows cecal volvulus Keep patient p.o. Start D5 lactated Ringer IV 100 ML/HOUR Follow-up BMP, correct electrolyte abnormality accordingly Consult general surgeon for evaluation treatment Acquired hypothyroidism Patient on Synthroid 50 mcg daily p.o. changed to Synthroid 25 mcg IV daily during p.o. Follow-up TSH Anemia No obvious bleeding Follow-up CBC Hospitalist [facility] Advance Care Plan I have confirmed that the patient's Advanced Care Plan is present, code status is documented, or surrogate decision maker is listed in patient medical record.: Yes Medication Reconciliation I have utilized all available resources to obtain, update and review the patients current medications (includes all prescriptions, OTC, herbals, cannabis, and nutritional supplements).: Yes
--- NOTE | 2024-04-06 09:10 | P.CONGS_ITS ---
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 CT scan reviewed and discussed with the patient in detail. There is evidence of a cecal volvulus. No signs of perforation or ischemia at this time. She is hemodynamically stable and abdominal pain is controlled. We would recommend proceeding with an open right hemicolectomy by Dr. Zamora, which would prevent recurrence. Description of the procedure, risks, benefits, alternatives, and expected recovery were discussed with the patient in detail. She agrees to proceed. We will keep her NPO. She has been added onto the surgery schedule this afternoon. (2) Hypothyroidism: Code(s): E03.9 - Hypothyroidism, unspecified Status: Acute Plan I have discussed the patient's case and plan of care with Dr. Zamora. Thank you for allowing us to see the patient in consultation and we will continue to follow along with you. History of Present Illness Consult details Consult date: 04/06/24 Reason for consult: other (Cecal volvulus) Requesting physician: Lisset Gibson APRN Narrative: This is a 73-year-old woman with PMH of hypothyroidism, endometriosis, and chronic kidney disease, who we have been asked to see in surgical consultation for cecal volvulus. She reports seeing her PCP yesterday morning for her annual exam. She was sitting outside the office when she had an onset of suprapubic pain. Initially, her pain was mild. Throughout the afternoon, her pain progressed and became intense. It began to radiate into the right lower quadrant. She developed bloating and nausea, but no vomiting. Due to her progressive pain, she came into the ED for evaluation. Denies ever having pain like this in the past. In the ED, vital signs are stable. Labs showed a normal white blood cell count. Lactic acid normal. CT scan of the abdomen and pelvis showed cecal volvulus. She was admitted to the medical floor. She is currently NPO and on IV fluids. She has received Toradol for her pain this morning, which is controlling her abdominal pain. She reports normal bowel movements leading up to her symptoms. Her last BM was yesterday afternoon. Denies any blood in her stool. She is passing flatus this morning. Her bloating feels better today. She reports having a colonoscopy in 2016 that was unremarkable. She has had multiple previous abdominal surgeries for endometriosis both open and laparoscopic. She has also had an open oophorectomy and hysterectomy. Review of Systems 2 Review of Systems: All systems reviewed & are unremarkable except as noted in HPI and below PMFSH Past Medical History Medical History (Updated 04/06/24 @ 08:14 by Hector Rowan MD) Statin intolerance Kidney disease Arthritis H/O vaginal delivery Endometriosis Hypothyroidism Surgical History Surgical History History of laparotomy For endometriosis History of laparoscopy For endometriosis S/P oophorectomy H/O dilation and curettage Hx of tonsillectomy H/O: hysterectomy Family History Family History Grandparent Carcinoma of colon Mother Family history of malignant neoplasm of breast in first degree relative Son Family history of alcoholism Depression Sibling Diabetes mellitus Heart disease Other Hypertension Social History Social History Social History: Smoking status: Never smoker Second hand tobacco smoke exposure: No Alcohol intake: never Substance use: never Substance use type: does not use Do You Feel Safe in your Home?: Yes Lack of Transportation: No Lack of Food: Never True Current Housing: I Have Housing Concerned About Future Housing: No Difficulty Paying Gas/Electric Bills: No Difficulty Paying for Meds: No Currently Unemployed: No Education: Master's Degree or Higher Difficulty w/ Childcare or Family Care: No Living arrangements: with family Occupation/Education: retired Gender identity (if verbalized by the patient): Female Sexual Orientation (if Verbalized by the Patient): Straight or Heterosexual Spiritual care concerns: No Meds Home Medications and Allergies Home Medications ?Medication ?Instructions ?Recorded ?Confirmed ?Type ondansetron 4 mg disintegrating 4 mg PO Q8H PRN nausea and 12/25/21 04/06/24 Rx tablet vomiting #30 tabs levocetirizine 5 mg tablet (Xyzal) 2.5 mg PO DAILY 04/06/23 04/06/24 History levothyroxine 50 mcg tablet 50 mcg PO DAILY #90 tabs 08/03/23 04/06/24 Rx ezetimibe 10 mg tablet (Zetia) 10 mg PO DAILY #30 tabs 10/21/23 04/06/24 Rx ergocalciferol (vitamin D2) 1,250 See Rx Instructions .Route 02/16/24 04/06/24 Rx mcg (50,000 unit) capsule .COMPLEX #6 caps calcium 600 mg (as 1 cap PO DAILY 04/06/24 04/06/24 History carbonate)-vitamin D3 5 mcg (200 unit) capsule (Calcium 600 + D(3)) calcium polycarbophil 625 mg 1,250 mg PO DAILY 04/06/24 04/06/24 History tablet (Fiber (calcium polycarbophil)) Allergies Allergy/AdvReac Type Severity Reaction Status Date / Time tramadol Allergy Intermediate RAPID Verified 04/05/24 17:18 HEART RATE/LOSS OF WEIGHT azithromycin Allergy Mild RASH Verified 04/05/24 17:18 Penicillins Allergy Mild Rash Verified 04/05/24 17:18 sulfamethoxazole (From Allergy Mild Unknown Verified 04/05/24 17:18 Bactrim) trimethoprim (From Bactrim) Allergy Mild Unknown Verified 04/05/24 17:18 nitrofurantoin Allergy Unknown Hives Verified 04/05/24 17:18 Pozgkyq-DRO-HgQ Reductase AdvReac Unknown MUSCLE Verified 04/05/24 17:18 Inhibitor (Xfrllvg-Lrn-Wto WEAKNESS Reductase Inhibitor) acetaminophen (From Tylenol) AdvReac constipatio Verified 04/05/24 17:18 n hydrocodone AdvReac Other Verified 04/05/24 17:18 STEROIDS AdvReac Unknown Unknown Uncoded 04/05/24 17:18 Vital Signs Vital Signs - 24 hr 04/05/24 17:12 04/06/24 00:00 04/06/24 00:10 Temperature 97.6 F 97.1 F L Pulse Rate 73 81 Respiratory Rate 20 16 Blood Pressure 161/78 H 168/71 H Pulse Oximetry 99 97 Oxygen Delivery Room Air Room Air 04/06/24 00:53 04/06/24 05:46 Temperature 97.4 F L Pulse Rate 67 Respiratory Rate 18 Blood Pressure 149/89 H 148/66 H Pulse Oximetry 97 Oxygen Delivery Exam 2 Const: General: comfortable and no acute distress Nutritional Appearance: a verage body habitus Orientation/consciousness: patient oriented x3 HENMT: Head: normocephalic and atraumatic Ears: hearing grossly normal bilaterally Mouth: Yes moist mucous membranes Eyes: General: appearance normal, both eyes and all related structures P upils: Equal, round and reactive pupils present Neck: Neck: normal visual inspection and full ROM Resp: Effort & Inspection: no respiratory distress Auscultation: clear to auscultation bilaterally Cardio: Rate: regular rate Rhythm: regular rhythm Peripheral pulses: P eripheral pulses 2+ throughout GI: Inspection: non-distended, scar (Pfannenstiel scar) and no visible herniation GI Palp: Yes Soft to palpation, Yes Tenderness to palpation present (GI) (Mild right lower quadrant and suprapubic tenderness), No Guarding due to palpation present (GI), No Palpable mass present (No palpable mass) and No Rebound tenderness present Auscultation: Hypoactive bowel sounds present Skin: General skin exam: normal color Neuro: General: moves all extremities and no focal motor deficits Speech: n ormal speech Motor exam (neuro): 5/5 motor strength present throughout Extrem: General: normal to inspection and no edema Psych: Mental Status: mental status grossly normal Attitude: cooperative Insight: Good insight present (Psych) Judgement: Good judgement present (Psych) Results Labs 04/05/24 21:37 04/05/24 21:37 Labs: Abnormal lab results 04/05/24 04/05/24 Range/Units 21:37 21:43 RBC 3.97 L (4.2-5.4) M/mm3 Hgb 11.8 L (12.0-15.0) g/dL Hct 36.7 L (37.0-47.0) % Neut % (Auto) 75.2 H (45.5-73.1) % Absolute Neuts (auto) 6.8 H (1.3-6.7) K/mm3 Creatinine 1.05 H (0.7-1.0) mg/dL Estimated GFR 51 L (59 - ) Lactic Acid 0.6 L (0.7-2.0) mmol/L Lipase 1578 H (23-300) U/L Urine Appearance Cloudy H (Clear) Urine RBC 3-5 H (0-2) /hpf Diabetes panel 04/05/24 Range/Units 21:37 Sodium 137 (137-145) mmol/L Potassium 4.4 (3.4-5.0) mmol/L Chloride 104 (98-107) mmol/L Carbon Dioxide 25 (22-30) mmol/L BUN 15 (7-17) mg/dL Creatinine 1.05 H (0.7-1.0) mg/dL Glucose 103 (65-110) mg/dL Calcium 9.1 (8.4-10.2) mg/dL AST 26 (14-36) U/L ALT 17 (6-35) U/L Alkaline Phosphatase 65 (38-126) U/L Total Protein 7.0 (6.3-8.2) g/dL Albumin 4.3 (3.5-5.1) g/dL Calcium panel 04/05/24 Range/Units 21:37 Calcium 9.1 (8.4-10.2) mg/dL Albumin 4.3 (3.5-5.1) g/dL Pituitary panel 04/05/24 Range/Units 21:37 Sodium 137 (137-145) mmol/L Potassium 4.4 (3.4-5.0) mmol/L Chloride 104 (98-107) mmol/L Carbon Dioxide 25 (22-30) mmol/L BUN 15 (7-17) mg/dL Creatinine 1.05 H (0.7-1.0) mg/dL Glucose 103 (65-110) mg/dL Calcium 9.1 (8.4-10.2) mg/dL Adrenal panel 04/05/24 Range/Units 21:37 Sodium 137 (137-145) mmol/L Potassium 4.4 (3.4-5.0) mmol/L Chloride 104 (98-107) mmol/L Carbon Dioxide 25 (22-30) mmol/L BUN 15 (7-17) mg/dL Creatinine 1.05 H (0.7-1.0) mg/dL Glucose 103 (65-110) mg/dL Calcium 9.1 (8.4-10.2) mg/dL Total Bilirubin 0.5 (0.2-1.3) mg/dL AST 26 (14-36) U/L ALT 17 (6-35) U/L Alkaline Phosphatase 65 (38-126) U/L Total Protein 7.0 (6.3-8.2) g/dL Albumin 4.3 (3.5-5.1) g/dL All other labs normal. Imaging Additional studies: ITS Impressions Abdomen/Pelvis CT 04/05/24 22:43 IMPRESSION: 1. Cecal volvulus.
--- NOTE | 2024-04-06 09:28 | ECG_ITS ---
Test Date: 2024-04-06 09:48:05 Measurements Intervals [place] Rate: 62 P: 111 OK: 183 QRS: 30 QRSD: 80 T: 67 QT: 382 QTc: 390 Interpretive Statements SINUS RHYTHM NONSPECIFIC ST AND T WAVE ABNORMALITY No previous ECG available for comparison Electronically Signed On 04-06-2024 16:04:37 [employer]GAL OFFICER by Kitty Durham M.D.
[2024-04-06 09:50] LABS: Basophils Percent Auto 0.5 % (0.2-1.2); Eosinophils Absolute Auto 0.1 K/mm3 (0-0.3); Eosinophils Percent Auto 0.8 % (0-4.4); Hematocrit 37.1 % (37.0-47.0); Hemoglobin 11.8 g/dL (12.0-15.0); Immature Granulocyte Absolute 0.01 K/mm3 (0.00-0.031); Immature Granulocyte Percent A 0.2 % (0-0.5); Lymphocytes Absolute Auto 1.96 K/mm3 (0.9-3.2); Lymphocytes Percent Auto 32.2 % (18.3-44.2); Mean Corpuscular HGB Conc 31.8 g/dl (32-36); Mean Corpuscular Hemoglobin 29.6 pg (26-34); Mean Platelet Volume 8.7 fl (7.4-10.4); Monocytes Absolute Auto 0.4 K/mm3 (0.1-0.6); Monocytes Percent Auto 6.2 % (2.6-8.5); Neutrophils Absolute Auto 3.7 K/mm3 (1.3-6.7); Neutrophils Percent Auto 60.1 % (45.5-73.1); Platelet Count Result 264 k/mm3 (150-375); Red Blood Count 3.99 M/mm3 (4.2-5.4); Red Cell Distribution Width 12.8 % (11.5-14.5); White Blood Count 6.1 K/mm3 (4.5-10.0)
[2024-04-06 10:05] LABS: Anion Gap 6 mmol/L (4-12); Blood Urea Nitrogen 12 mg/dL (7-17); Calcium 8.8 mg/dL (8.4-10.2); Carbon Dioxide 25 mmol/L (22-30); Chloride 106 mmol/L (98-107); Estimated CRCL calculation 37 ml/min; Estimated Glomerular Filt Rate 52; Glucose 98 mg/dL (65-110); Phosphorus 3.4 mg/dL (2.5-4.5); Potassium 4.3 mmol/L (3.4-5.0); Sodium 137 mmol/L (137-145)
[2024-04-06] MEDS: CHLORHEXIDINE GLUCONATE 4% SOL 120 ML BTL 1 APPLIC TOPICAL (10:06)
[2024-04-06] MEDS: LEVOTHYROXINE SODIUM INJ 100 MCG/5 ML VIAL 25 MCG IV PUSH (10:06)
[2024-04-06 10:16] LABS: Prothrombin Time 13.7 Seconds (11.1-14.7)
[2024-04-06 10:17] LABS: Partial Thromboplastin Time 34.4 Seconds (22.3-36.8)
[2024-04-06] MEDS: DEXTROSE 5%/LACTATED RINGERS 1,000 ML 100 ML IV CONT (10:59)
--- NOTE | 2024-04-06 11:42 | WPDHPUPDATE1 ---
History and Physical Update Update Date/Time: 04/06/24 11:42 History and Physical has been reviewed, including an updated exam of the patient. There are NO changes in the patient's condition. Risks, benefits, and alternatives have been discussed and questions answered. Patient agrees to proceed with procedure.
--- NOTE | 2024-04-06 12:17 | PC.NURSE ---
Patient to OR per bed.
[2024-04-06] MEDS: LACTATED RINGERS 1,000 ML 30 ML IV CONT ×2 (12:18→15:10)
--- NOTE | 2024-04-06 13:20 | WPDANESEPPF ---
Anes - Initial Pre Proc Eval Procedure: Operation Date: 04/06/24 13:30 Proposed Procedures p Hand Assisted Laparoscopic Right Hemicolectomy - Jose Elias Zamora DO Date/Time: 04/06/24 13:20 Surgeon: Marisol Victoria MD Pre Op Diagnosis: cecal volvulus Patient Data Age: 73 Gender: F Height: 1.68 m Weight: 56 kg Last Vital Signs Temp 36.3 C L 04/06/24 05:46 Pulse 67 04/06/24 05:46 Resp 18 04/06/24 05:46 BP 148/66 H 04/06/24 05:46 Pulse Ox 97 04/06/24 05:46 O2 Del Method Room Air 04/06/24 08:47 Allergies Allergy/AdvReac Type Severity Reaction Status Date / Time tramadol Allergy Intermediate RAPID Verified 04/05/24 17:18 HEART RATE/LOSS OF WEIGHT azithromycin Allergy Mild RASH Verified 04/05/24 17:18 Penicillins Allergy Mild Rash Verified 04/05/24 17:18 sulfamethoxazole (From Allergy Mild Unknown Verified 04/05/24 17:18 Bactrim) trimethoprim (From Bactrim) Allergy Mild Unknown Verified 04/05/24 17:18 nitrofurantoin Allergy Unknown Hives Verified 04/05/24 17:18 Fbbtksa-FUT-TsZ Reductase AdvReac Unknown MUSCLE Verified 04/05/24 17:18 Inhibitor (Ztgtcao-Bff-Fgw WEAKNESS Reductase Inhibitor) acetaminophen (From Tylenol) AdvReac constipatio Verified 04/05/24 17:18 n hydrocodone AdvReac Other Verified 04/05/24 17:18 STEROIDS AdvReac Unknown Unknown Uncoded 04/05/24 17:18 Home Medications ?Medication ?Instructions ?Recorded ?Confirmed ?Type ondansetron 4 mg disintegrating 4 mg PO Q8H PRN nausea and 12/25/21 04/06/24 Rx tablet vomiting #30 tabs levocetirizine 5 mg tablet (Xyzal) 2.5 mg PO DAILY 04/06/23 04/06/24 History levothyroxine 50 mcg tablet 50 mcg PO DAILY #90 tabs 08/03/23 04/06/24 Rx ezetimibe 10 mg tablet (Zetia) 10 mg PO DAILY #30 tabs 10/21/23 04/06/24 Rx ergocalciferol (vitamin D2) 1,250 See Rx Instructions .Route 02/16/24 04/06/24 Rx mcg (50,000 unit) capsule .COMPLEX #6 caps calcium 600 mg (as 1 cap PO DAILY 04/06/24 04/06/24 History carbonate)-vitamin D3 5 mcg (200 unit) capsule (Calcium 600 + D(3)) calcium polycarbophil 625 mg 1,250 mg PO DAILY 04/06/24 04/06/24 History tablet (Fiber (calcium polycarbophil)) Laboratory Tests 04/05/24 04/05/24 04/06/24 21:37 21:43 09:32 WBC 9.0 K/mm3 6.1 K/mm3 (4.5-10.0) (4.5-10.0) RBC 3.97 L M/mm3 3.99 L M/mm3 (4.2-5.4) (4.2-5.4) Hgb 11.8 L g/dL 11.8 L g/dL (12.0-15.0) (12.0-15.0) Hct 36.7 L % 37.1 % (37.0-47.0) (37.0-47.0) MCV 92.4 fl 93.0 fl (80-100) (80-100) MCH 29.7 pg 29.6 pg (26-34) (26-34) MCHC 32.2 g/dl 31.8 L g/dl (32-36) (32-36) RDW 12.9 % 12.8 % (11.5-14.5) (11.5-14.5) Plt Count 259 k/mm3 264 k/mm3 (150-375) (150-375) MPV 8.6 fl 8.7 fl (7.4-10.4) (7.4-10.4) Immature Gran % (Auto) 0.2 % 0.2 % (0-0.5) (0-0.5) Neut % (Auto) 75.2 H % 60.1 % (45.5-73.1) (45.5-73.1) Lymph % (Auto) 20.0 % 32.2 % (18.3-44.2) (18.3-44.2) [place] % (Auto) 4.0 % 6.2 % (2.6-8.5) (2.6-8.5) Eos % (Auto) 0.3 % 0.8 % (0-4.4) (0-4.4) Baso % (Auto) 0.3 % 0.5 % (0.2-1.2) (0.2-1.2) Lymph # (Auto) 1.80 K/mm3 1.96 K/mm3 (0.9-3.2) (0.9-3.2) [place] # (Auto) 0.4 K/mm3 0.4 K/mm3 (0.1-0.6) (0.1-0.6) Eos # (Auto) 0.0 K/mm3 0.1 K/mm3 (0-0.3) (0-0.3) Baso # (Auto) 0.0 K/mm3 0.0 K/mm3 (0.0-0.1) (0.0-0.1) Abs Immat Gran (auto) 0.02 K/mm3 0.01 K/mm3 (0.00-0.031) (0.00-0.031) Absolute Neuts (auto) 6.8 H K/mm3 3.7 K/mm3 (1.3-6.7) (1.3-6.7) Absolute Nucleated RBC 0.000 K/mm3 0.000 K/mm3 (0.0-0.012) (0.0-0.012) Nucleated RBC % 0.0 % 0.0 % (0.0-0.2) (0.0-0.2) PT INR APTT Sodium 137 mmol/L 137 mmol/L (137-145) (137-145) Potassium 4.4 mmol/L 4.3 mmol/L (3.4-5.0) (3.4-5.0) Chloride 104 mmol/L 106 mmol/L (98-107) (98-107) Carbon Dioxide 25 mmol/L 25 mmol/L (22-30) (22-30) Anion Gap 8 mmol/L 6 mmol/L (4-12) (4-12) BUN 15 mg/dL 12 mg/dL (7-17) (7-17) Creatinine 1.05 H mg/dL 1.03 H mg/dL (0.7-1.0) (0.7-1.0) Estim Creat Clear Calc 37 ml/min 37 ml/min Estimated GFR 51 L 52 L (59 - ) (59 - ) Glucose 103 mg/dL 98 mg/dL (65-110) (65-110) Lactic Acid 0.6 L mmol/L (0.7-2.0) Calcium 9.1 mg/dL 8.8 mg/dL (8.4-10.2) (8.4-10.2) Phosphorus 3.4 mg/dL (2.5-4.5) Magnesium 2.0 mg/dL (1.6-2.3) Total Bilirubin 0.5 mg/dL (0.2-1.3) AST 26 U/L (14-36) ALT 17 U/L (6-35) Alkaline Phosphatase 65 U/L (38-126) Total Protein 7.0 g/dL (6.3-8.2) Albumin 4.3 g/dL (3.5-5.1) Lipase 1578 H U/L (23-300) Urine Color Yellow (Yellow) Urine Appearance Cloudy H (Clear) Urine pH 6.5 (5.0-9.0) Ur Specific [place] 1.017 (1.001-1.035) Urine Protein Negative mg/dL (Negative) Urine Glucose (UA) Negative mg/dL (Negative) Urine Ketones Negative mg/dL (Negative) Ur Blood (Man) Negative (Negative) Urine Nitrate Negative (Negative) Urine Bilirubin Negative (Negative) Urine Urobilinogen 0.2 mg/dL (<2.0) Leukocyte Esterase Rfl Negative TODD/UL (Negative) Urine RBC 3-5 H /hpf (0-2) Urine WBC 0-5 /hpf (0-3) Ur Squamous Epith Cells None seen /hpf (Few) Urine Bacteria None seen /hpf Urine Casts 0-2 Blood Type Antibody Screen 04/06/24 09:36 WBC RBC Hgb Hct MCV MCH MCHC RDW Plt Count MPV Immature Gran % (Auto) Neut % (Auto) Lymph % (Auto) [place] % (Auto) Eos % (Auto) Baso % (Auto) Lymph # (Auto) [place] # (Auto) Eos # (Auto) Baso # (Auto) Abs Immat Gran (auto) Absolute Neuts (auto) Absolute Nucleated RBC Nucleated RBC % PT 13.7 Seconds (11.1-14.7) INR 1.0 APTT 34.4 Seconds (22.3-36.8) Sodium Potassium Chloride Carbon Dioxide Anion Gap BUN Creatinine Estim Creat Clear Calc Estimated GFR Glucose Lactic Acid Calcium Phosphorus Magnesium Total Bilirubin AST ALT Alkaline Phosphatase Total Protein Albumin Lipase Urine Color Urine Appearance Urine pH Ur Specific [place] Urine Protein Urine Glucose (UA) Urine Ketones Ur Blood (Man) Urine Nitrate Urine Bilirubin Urine Urobilinogen Leukocyte Esterase Rfl Urine RBC Urine WBC Ur Squamous Epith Cells Urine Bacteria Urine Casts Blood Type A Positive Antibody Screen Negative Patient hx anesthesia problems: none Family hx anesthesia problems: none Results Review: All pre-operative results and documents have been reviewed as part of the pre-operative evaluation. [facility] Past Medical History Medical History Statin intolerance Kidney disease Arthritis H/O vaginal delivery Endometriosis Hypothyroidism Surgical History Surgical History History of laparotomy For endometriosis History of laparoscopy For endometriosis S/P oophorectomy H/O dilation and curettage Hx of tonsillectomy H/O: hysterectomy Family History Family History Grandparent Carcinoma of colon Mother Family history of malignant neoplasm of breast in first degree relative Son Family history of alcoholism Depression Sibling Diabetes mellitus Heart disease Other Hypertension Social History Social History Social History: Smoking status: Never smoker Second hand tobacco smoke exposure: No Alcohol intake: never Substance use: never Substance use type: does not use Do You Feel Safe in your Home?: Yes Lack of Transportation: No Lack of Food: Never True Current Housing: I Have Housing Concerned About Future Housing: No Difficulty Paying Gas/Electric Bills: No Difficulty Paying for Meds: No Currently Unemployed: No Education: Master's Degree or Higher Difficulty w/ Childcare or Family Care: No Living arrangements: with family Occupation/Education: retired Gender identity (if verbalized by the patient): Female Sexual Orientation (if Verbalized by the Patient): Straight or Heterosexual Spiritual care concerns: No Anes - Eval Final PreProcedure Day of Procedure 04/06/24 13:20 Patient weight: normal Heart: regular rate and rhythm Lungs: clear to auscultation Airway: Mallampati scale class 1 Neurological: alert and oriented Last oral intake: >/= 8 hours ASA classification: III Emergent: no Anesthetic plan: proceed Anesthesia type and monitoring: general ETT and standard monitoring Results Review: All pre-operative results and documents have been reviewed as part of the pre-operative evaluation. Informed Consent: The patient's anesthetic plan and its attendant risks and benefits were discussed with the patient/family/POA. Questions were solicited and answers provided to the satisfaction of the patient/family/POA.
[2024-04-06] MEDS: ceFAZolin 2 GM/D5W 50 ML 2 GM/50 ML BAG IVPB (14:16)
[2024-04-06] MEDS: BUPIVACAINE/EPINEPHRINE 0.5% 50 ML VIAL 30 ML INFILTRATE (14:18)
--- NOTE | 2024-04-06 14:32 | S_PTH ---
PATIENT: Amada Gayle LOC: [id number] #:[id number] AGE/SX: 73/F ROOM: 345 RE04/07/[address]: Fernando Beintez MD : 1950 BED: 01 DIS: 04/09/2024 SPEC #: [id number] RECD: 04/07/24 10:43 STATUS: RACHEL REQ #: [id number] TED: 04/06/24 14:[address]: Jose Elias Zamora DEPT: [facility] Surgical RECD BY: Clau Adam ENTERED: 04/07/24 10:44 SP TYPE: Surgical OTHR DR: MD Marisol Bowman MD Tissues: A - Colon Segment NonTumor Procedures: Hematoxylin and Eosin Stain Gross and Microscopic Level 5
--- NOTE | 2024-04-06 15:08 | P.OP_ITS ---
Procedure Note - Detailed Date of Procedure 04/06/24 Pre-op Diagnosis cecal volvulus Post-op Diagnosis Same Procedure Performed Hand assisted laparoscopic right hemicolectomy with ileocolic anastomosis Surgeon Jose Elias Zamora, DO Anesthesia General and Local (0.5% bupivacaine with epi) Indications This is a 73-year-old woman who presented to the emergency department overnight with abdominal pain that started in the right lower quadrant and continued to progress yesterday. She had never experienced any symptoms like this in the past. CT in the emergency department showed evidence of cecal volvulus. There were no signs of ischemia and she was hemodynamically stable. She was admitted to the hospital and further discussions were made with the patient about treatment options. Decision was made to proceed with urgent hand assisted laparoscopic right hemicolectomy, possible open. Findings Hand assisted laparoscopic right hemicolectomy was performed. 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 There were some mild signs of ischemia but the bowel still appeared viable. Right hemicolectomy was performed to prevent recurrent volvulus. A [id number] ileocolic anastomosis was performed. No other intra-abdominal abnormalities were noted. The right colon was sent to the lab for pathology. Description of Procedure Procedure as well as risks benefits and alternatives were explained to the patient. Written consent was obtained and placed in chart prior to procedure. Patient was brought back to surgical suite. She was placed supine on operating table. Time-out was done to confirm patient procedure. She was then intubated by the anesthesia department. Her abdomen was prepped and draped in sterile fashion using chlorhexidine prep. 0.5% bupivacaine with epinephrine was infiltrated locally at each of the incision locations. A 6 centimeter vertical incision was made just superior to the umbilicus using a 15 blade scalpel. Electrocautery was used for hemostasis and for dissection down through Iris's fascia. The linea alba was identified, and incised using electrocautery. Two Praveen clamps were used to lift the fascia anteriorly, and the peritoneum was then entered using electrocautery. The abdomen was inspected and no acute abnormalities were noted. The wound protector was placed at this incision, and the GelPort was applied with a 5 millimeter port placed through it. Carbon dioxide insufflation was used to create a pneumoperitoneum. The camera was inserted and the abdominal cavity was inspected. The cecum was identified and appeared to be still partially twisted and slightly ischemic, and no other abnormalities were noted. The patient was placed in Trendelenburg position and rotated slightly to the left. A 5 millimeter incision was made in the lower midline and a 5 millimeter trocar was inserted under direct visualization. Another 5 millimeter incision was made in the left lower quadrant, and a 5 m illimeter trocar was inserted under direct visualization. After carefully inspecting the abdominal cavity, I began my dissection from a medial to lateral direction along the ileocolic pedicle. The cecum was tented anteriorly and laterally and this allowed me to visualize the ileocolic pedicle. The medial side and inferior side of the peritoneum was scored using hook electrocautery and the retroperitoneal plane was entered. Careful dissection was performed using hook electrocautery in this relatively avascular plane. The duodenum was identified and swept posteriorly. I then continued to dissect proximally along the ileocolic pedicle. I isolated the ileocolic vein and artery individually and performed a high ligation using bipolar cautery. Hemostasis appeared adequate. I then continued the medial to lateral dissection maintaining this avascular plane. I also dissected along the transverse colon to the right side all the way to the level of the hepatic flexure. The terminal ileum and appendix were then retracted medially and the lateral peritoneal attachments were taken down using hook electrocautery. The root of the mesentery was then carefully taken down proximally to allow adequate mobilization of the small bowel for our anastomosis. The lateral peritoneal attachments of the ascending colon were then taken down using hook electrocautery. The hepatic flexure was taken down using ligasure bipolar cautery. Once this was completed I gained adequate mobilization of the entire ascending and proximal transverse colon to exteriorize and perform our resection and anastomosis. The patient was flattened out in bed, and the cecum was grasped and delivered through the wound protector. The pneumoperitoneum was released. I carefully delivered the entire ascending and proximal transverse colon out through the hand port incision. The specimen was inspected and appeared to have adequate mobilization to perform our resection. The transverse colon was cleared of the epiploic appendages and omentum and a GRISELDA 75 millimeter blue load stapler was advanced across the transverse colon at this point and clamped and fired. The right branch of the middle colic artery was then ligated using bipolar cautery. Hemostasis appeared adequate. A window was then created in the mesentery at the terminal ileum, and a GRISELDA 75 millimeter blue load stapler was advanced across the terminal ileum at this point and clamped and fired. The remaining mesentery attachments were then taken down using bipolar cautery. This freed up the specimen completely, and it was then removed and sent to the lab for pathology. The 2 ends of the bowel were inspected and appeared healthy and viable. They came together in a [id number] fashion without any tension. Enterotomies were then made at the anti mesenteric border using electrocautery. The GRISELDA 75 millimeter blue load stapler was then advanced through each enterotomy and the 2 limbs of the bowel were clamped together in a [id number] fashion and then the stapler was fired to create our anastomosis. The stapler was removed and the anastomosis was inspected. It appeared healthy and viable. The enterotomy was then closed us ing a TLC 60 millimeter blue load stapler. The apex of the staple line was then reinforced using 3 0 silk seromuscular imbricating sutures. The anastomosis was inspected and appeared healthy and viable and appeared widely patent. The anastomosis was then released back down into the abdominal cavity. One final inspection was made around the abdominal cavity, and no other abnormalities were noted. Hemostasis appeared adequate. The ports and wound protector were then removed. The sterile closing tray was used for abdomen closure, along with sterile gown and gloves. The fascia of the hand port incision was reapproximated using 0 PDS running suture starting at each end and meeting in the middle. The deep dermis was approximated using 3 0 Vicryl inverted interrupted sutures. The skin of all the incisions was approximated using 4-0 Monocryl subcuticular suture. Exofin glue was applied on top. The patient was awakened from anesthesia, extubated, and transferred to recovery. Estimated Blood Loss 10 Urine Output 300 Pathology Yes (Right colon) Complications No immediate complications Condition Stable Disposition Floor [facility] Billing Surgery - Charge Forward: Surgery Billing
[2024-04-06] MEDS: ONDANSETRON INJ 4 MG/2 ML VIAL IV PUSH ×2 (15:47→20:57)
[2024-04-06] MEDS: fentaNYL CITRATE INJ (*CRX) 100 MCG/2 ML VIAL 25 MCG IV PUSH ×4 (15:51→16:05)
--- NOTE | 2024-04-06 16:35 | PC.NURSE ---
Patient returned from OR per bed.
[2024-04-06] MEDS: oxyCODONE HCL (*CRX) 2.5 MG TAB IR PO (20:59)
[2024-04-07 00:17] VITALS: BP 130/60; PULSE 78; RESP 14; TEMP 37.2; O2SAT 97
[2024-04-07] MEDS: DEXTROSE 5%/LACTATED RINGERS 1,000 ML 100 ML IV CONT (04:51)
[2024-04-07] MEDS: oxyCODONE HCL (*CRX) 2.5 MG TAB IR PO (04:51)
[2024-04-07] MEDS: LEVOTHYROXINE SODIUM INJ 100 MCG/5 ML VIAL 25 MCG IV PUSH (04:52)
[2024-04-07] MEDS: ONDANSETRON INJ 4 MG/2 ML VIAL IV PUSH ×4 (04:55→17:42)
[2024-04-07 04:58] VITALS: BP 135/61; PULSE 72; RESP 16; TEMP 37; O2SAT 97
[2024-04-07 08:25] LABS: Basophils Percent Auto 0.1 % (0.2-1.2); Eosinophils Percent Auto 0.1 % (0-4.4); Hematocrit 30.8 % (37.0-47.0); Hemoglobin 10.1 g/dL (12.0-15.0); Immature Granulocyte Absolute 0.03 K/mm3 (0.00-0.031); Immature Granulocyte Percent A 0.3 % (0-0.5); Lymphocytes Absolute Auto 1.52 K/mm3 (0.9-3.2); Lymphocytes Percent Auto 14.4 % (18.3-44.2); Mean Corpuscular HGB Conc 32.8 g/dl (32-36); Mean Corpuscular Hemoglobin 30.4 pg (26-34); Mean Corpuscular Volume 92.8 fl (80-100); Mean Platelet Volume 8.7 fl (7.4-10.4); Monocytes Absolute Auto 0.6 K/mm3 (0.1-0.6); Monocytes Percent Auto 5.9 % (2.6-8.5); Neutrophils Absolute Auto 8.3 K/mm3 (1.3-6.7); Neutrophils Percent Auto 79.2 % (45.5-73.1); Platelet Count Result 197 k/mm3 (150-375); Red Blood Count 3.32 M/mm3 (4.2-5.4); Red Cell Distribution Width 12.9 % (11.5-14.5); White Blood Count 10.5 K/mm3 (4.5-10.0)
[2024-04-07 08:38] LABS: Anion Gap 5 mmol/L (4-12); Blood Urea Nitrogen 10 mg/dL (7-17); Calcium 8.2 mg/dL (8.4-10.2); Carbon Dioxide 26 mmol/L (22-30); Chloride 101 mmol/L (98-107); Estimated CRCL calculation 40 ml/min; Estimated Glomerular Filt Rate 54; Glucose 116 mg/dL (65-110); Magnesium 1.7 mg/dL (1.6-2.3); Phosphorus 3.1 mg/dL (2.5-4.5); Sodium 132 mmol/L (137-145)
[2024-04-07] MEDS: MORPHINE SULFATE (*CRX) 4 MG/ML INJ IV PUSH (08:53)
[2024-04-07] MEDS: ENOXAPARIN 40 MG/0.4 ML SYRINGE SUB-Q (08:53)
[2024-04-07] MEDS: MAGNESIUM SULF 2 GM/WATER 50ML 2 GM/50 ML BAG IVPB (09:06)
[2024-04-07 09:28] VITALS: BP 134/58; PULSE 73; RESP 18; TEMP 37.1; O2SAT 98
--- NOTE | 2024-04-07 11:45 | PM.IMPN ---
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 Status: Acute Plan 73 years old lady with history of hysterectomy, oophorectomy, CKD stage 3, hypothyroidism, present ED with chief complaint of abdomen pain.CT abdomen shows cecal volvulus. General surgery was consulted, status post Hand assisted laparoscopic right hemicolectomy with ileocolic anastomosis. 1. Acute abdominal pain: Secondary to cecal volvulus Code status post hand assisted laparoscopic right hemicolectomy with ileocolic anastomosis General surgery following On clear liquid diet Pain controlled Antiemetics as needed Out of bed, ambulate as tolerated Monitor leukocytosis Will stop fluids with when p.o. intake is significant Supplement magnesium Resume oral medications PT/OT as tolerated 2. DVT prophylaxis: Lovenox 3. Code status: Full 4. Disposition: Pending improvement Time Spent With Patient Time: Time spent: 37 minutes Moderate complexity Subjective Date/time seen: 04/07/24 11:45 Interval history: Hand assisted laparoscopic right hemicolectomy with ileocolic anastomosis, postop day 1 Complains of nausea, incisional pain Review of Systems Review of Systems: All systems reviewed & are unremarkable except as noted in HPI and below Exam Narrative: GENERAL: Pleasant, in no acute distress. Well-nourished. - EYES: EOMI. Anicteric. - HENT: Moist mucous membranes. - LUNGS: Clear to auscultation bilaterally, no wheezing, rhonchi, or rales. - CARDIOVASCULAR: Regular rate and rhythm. No murmur. No JVD. - ABDOMEN: Midline incision from laparoscopic procedure yesterday, looks clean and dry and intact - EXTREMITIES: No edema. Peripheral pulses 2+. Non-tender. - NEUROLOGIC: No focal neurological deficits. CN II-XII grossly intact. - PSYCHIATRIC: Awake, Alert and oriented x 3. Appropriate mood and affect. - SKIN: No rashes or lesions. Warm. - LYMPH: No cervical lymphadenopathy. Objective Data Vital Signs Vital Signs: Vital Signs - 24 hr 04/06/24 15:10 04/06/24 15:15 04/06/24 15:25 Temperature 97.8 F Pulse Rate 64 75 Respiratory Rate 18 20 Blood Pressure 114/55 L 132/57 L Pulse Oximetry 100 100 100 Oxygen Delivery Simple Face Mask Simple Face Mask Simple Face Mask Oxygen Flow Rate 8 8 8 04/06/24 15:40 04/06/24 15:55 04/06/24 16:00 Temperature Pulse Rate 77 90 Respiratory Rate 16 15 Blood Pressure 140/64 141/63 H Pulse Oximetry 100 100 100 Oxygen Delivery Simple Face Mask Simple Face Mask Room Air Oxygen Flow Rate 8 8 04/06/24 16:10 04/06/24 16:22 04/06/24 16:40 Temperature 97.6 F 97.2 F L Pulse Rate 73 73 77 Respiratory Rate 12 15 16 Blood Pressure 140/68 146/70 H 170/75 H Pulse Oximetry 92 96 98 Oxygen Delivery Room Air Room Air Oxygen Flow Rate 04/06/24 16:55 04/06/24 17:25 04/06/24 18:46 Temperature 97.4 F L 97.5 F L 97.2 F L Pulse Rate 74 78 84 Respiratory Rate 16 18 18 Blood Pressure 148/68 H 134/80 145/64 H Pulse Oximetry 98 98 99 Oxygen Delivery Oxygen Flow Rate 04/06/24 21:08 04/07/24 00:17 04/07/24 04:58 Temperature 97.5 F L 99 F 98.6 F Pulse Rate 79 78 72 Respiratory Rate 16 14 16 Blood Pressure 130/60 130/60 135/61 Pulse Oximetry 98 97 97 Oxygen Delivery Oxygen Flow Rate 04/07/24 09:28 Temperature 98.8 F Pulse Rate 73 Respiratory Rate 18 Blood Pressure 134/58 L Pulse Oximetry 98 Oxygen Delivery Oxygen Flow Rate Intake/Output Intake/Output: Intake & Output 04/04/24 04/05/24 04/06/24 04/07/24 23:59 23:59 23:59 23:59 Intake Total 3430 640 Output Total 1500 800 Balance 1930 -160 Meds/Results Medications: Active Medications Generic Name Dose Route Start Last Admin Trade Name Freq PRN Reason Stop Dose Admin Enoxaparin Sodium 40 mg 04/07/24 09:00 04/07/24 08:53 Enoxaparin 40 Mg/0.4 Ml Syringe SUB-Q 40 mg DAILY OUMOU Administration Dextrose/Lactated Ringer's 1,000 mls @ 100 mls/hr 04/06/24 09:00 04/07/24 04:51 Dextrose 5%/Lactated Ringers IV CONT 100 mls/hr .Q10H OUMOU Administration Levothyroxine Sodium 50 mcg 04/08/24 06:30 Levothyroxine Sodium 50 Mcg Tablet PO DAILY@0630 [facility] Morphine Sulfate 2 mg 04/06/24 16:26 Morphine Sulfate (*Crx) 2 Mg/Ml Inj IV PUSH Q2H PRN Breakthrough Pain Rated 4-6 or NPO Morphine Sulfate 4 mg 04/06/24 16:26 04/07/24 08:53 Morphine Sulfate (*Crx) 4 Mg/Ml Inj IV PUSH 4 mg Q2H PRN Administration Breakthrough Pain Rated 7-10 or NPO Naloxone HCl 0.1 mg 04/06/24 16:26 Naloxone Hcl 0.4 Mg/Ml Vial IV PUSH Q2M PRN Opiate Reversal Ondansetron HCl 4 mg 04/06/24 00:05 04/07/24 08:53 Ondansetron Inj 4 Mg/2 Ml Vial IV PUSH 4 mg Q4H PRN Administration Nausea Oxycodone HCl 2.5 mg 04/06/24 16:26 04/07/24 04:51 Oxycodone Hcl (*Crx) 2.5 Mg Tab Ir PO 2.5 mg Q4H PRN Administration Pain Rated 4-6 Oxycodone HCl 5 mg 04/06/24 16:26 Oxycodone Hcl (*Crx) 5 Mg Tab Ir PO Q4H PRN Pain Rated 7-10 Prochlorperazine Edisylate 10 mg 04/07/24 10:00 Prochlorperazine Edisylate 10 Mg/2 Ml Vial IV PUSH Q6H PRN Nausea And Vomiting Radiology Results: ITS Impressions Abdomen/Pelvis CT 04/05/24 22:43 IMPRESSION: 1. Cecal volvulus. Labs Labs: Laboratory Results - last 24 hr 04/07/24 08:19 WBC 10.5 H RBC 3.32 L Hgb 10.1 L Hct 30.8 L MCV 92.8 MCH 30.4 MCHC 32.8 RDW 12.9 Plt Count 197 MPV 8.7 Immature Gran % (Auto) 0.3 Neut % (Auto) 79.2 H Lymph % (Auto) 14.4 L [place] % (Auto) 5.9 Eos % (Auto) 0.1 Baso % (Auto) 0.1 L Lymph # (Auto) 1.52 [place] # (Auto) 0.6 Eos # (Auto) 0.0 Baso # (Auto) 0.0 Abs Immat Gran (auto) 0.03 Absolute Neuts (auto) 8.3 H Absolute Nucleated RBC 0.000 Nucleated RBC % 0.0 Sodium 132 L Potassium 4.0 Chloride 101 Carbon Dioxide 26 Anion Gap 5 BUN 10 Creatinine 1.01 H Estim Creat Clear Calc 40 Estimated GFR 54 L Glucose 116 H Calcium 8.2 L Phosphorus 3.1 Magnesium 1.7 Quality VTE Prophylaxis VTE prophylaxis: pharmacologic ordered
--- NOTE | 2024-04-07 12:06 | P.PNGS_ITS ---
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 Status: Acute Assessment and Plan: * Continue clear liquids * Will adjust pain meds due to intolerance of morphine. Schedule IV Ibuprofen for 24 hours, and prn Fentanyl for breakthrough severe pain. * Increase activity * Await return of bowel function Subjective Subjective Date/Time Seen: 04/07/24 12:06 Interval history: Nauseated after receiving morphine this AM. No flatus or BM yet. Hasn't walked much yet secondary to the nausea. Exam GI: Inspection: incision (intact with glue, mild bruising) GI Palp: Yes Soft to palpation and Yes Tenderness to palpation present (GI) (incisional) Objective Data Vital Signs Vital Signs: Vital Signs - 24 hr 04/06/24 15:10 04/06/24 15:15 04/06/24 15:25 Temperature 97.8 F Pulse Rate 64 75 Respiratory Rate 18 20 Blood Pressure 114/55 L 132/57 L Pulse Oximetry 100 100 100 Oxygen Delivery Simple Face Mask Simple Face Mask Simple Face Mask Oxygen Flow Rate 8 8 8 04/06/24 15:40 04/06/24 15:55 04/06/24 16:00 Temperature Pulse Rate 77 90 Respiratory Rate 16 15 Blood Pressure 140/64 141/63 H Pulse Oximetry 100 100 100 Oxygen Delivery Simple Face Mask Simple Face Mask Room Air Oxygen Flow Rate 8 8 04/06/24 16:10 04/06/24 16:22 04/06/24 16:40 Temperature 97.6 F 97.2 F L Pulse Rate 73 73 77 Respiratory Rate 12 15 16 Blood Pressure 140/68 146/70 H 170/75 H Pulse Oximetry 92 96 98 Oxygen Delivery Room Air Room Air Oxygen Flow Rate 04/06/24 16:55 04/06/24 17:25 04/06/24 18:46 Temperature 97.4 F L 97.5 F L 97.2 F L Pulse Rate 74 78 84 Respiratory Rate 16 18 18 Blood Pressure 148/68 H 134/80 145/64 H Pulse Oximetry 98 98 99 Oxygen Delivery Oxygen Flow Rate 04/06/24 21:08 04/07/24 00:17 04/07/24 04:58 Temperature 97.5 F L 99 F 98.6 F Pulse Rate 79 78 72 Respiratory Rate 16 14 16 Blood Pressure 130/60 130/60 135/61 Pulse Oximetry 98 97 97 Oxygen Delivery Oxygen Flow Rate 04/07/24 09:28 Temperature 98.8 F Pulse Rate 73 Respiratory Rate 18 Blood Pressure 134/58 L Pulse Oximetry 98 Oxygen Delivery Oxygen Flow Rate Intake/Output Intake/Output: Intake & Output 04/04/24 04/05/24 04/06/24 04/07/24 23:59 23:59 23:59 23:59 Intake Total 3430 640 Output Total 1500 800 Balance 1930 -160 Meds/Results Medications: Active Medications Generic Name Dose Route Start Last Admin Trade Name Freq PRN Reason Stop Dose Admin Enoxaparin Sodium 40 mg 04/07/24 09:00 04/07/24 08:53 Enoxaparin 40 Mg/0.4 Ml Syringe SUB-Q 40 mg DAILY OUMOU Administration Fentanyl Citrate 25 mcg 04/07/24 12:03 Fentanyl Citrate Inj (*Crx) 100 Mcg/2 Ml Vial IV PUSH Q2H PRN Pain Rated 7-10 Dextrose/Lactated Ringer's 1,000 mls @ 75 mls/hr 04/06/24 09:00 04/07/24 04:51 Dextrose 5%/Lactated Ringers IV CONT 04/08/24 08:59 100 mls/hr .[id number] OUMOU Administration Ibuprofen 800 mg in 200 mls @ 400 mls/hr 04/07/24 12:05 Caldolor 800 Mg/200 Ml IVPB 04/08/24 06:34 Q6H OUMOU Levothyroxine Sodium 50 mcg 04/08/24 06:30 Levothyroxine Sodium 50 Mcg Tablet PO DAILY@0630 O[facility] Naloxone HCl 0.1 mg 04/06/24 16:26 Naloxone Hcl 0.4 Mg/Ml Vial IV PUSH Q2M PRN Opiate Reversal Ondansetron HCl 4 mg 04/06/24 00:05 04/07/24 08:53 Ondansetron Inj 4 Mg/2 Ml Vial IV PUSH 4 mg Q4H PRN Administration Nausea Oxycodone HCl 2.5 mg 04/06/24 16:26 04/07/24 04:51 Oxycodone Hcl (*Crx) 2.5 Mg Tab Ir PO 2.5 mg Q4H PRN Administration Pain Rated 4-6 Oxycodone HCl 5 mg 04/06/24 16:26 Oxycodone Hcl (*Crx) 5 Mg Tab Ir PO Q4H PRN Pain Rated 7-10 Prochlorperazine Edisylate 10 mg 04/07/24 10:00 Prochlorperazine Edisylate 10 Mg/2 Ml Vial IV PUSH Q6H PRN Nausea And Vomiting Radiology Results: ITS Impressions Abdomen/Pelvis CT 04/05/24 22:43 IMPRESSION: 1. Cecal volvulus. Labs Labs: Laboratory Results - last 24 hr 04/07/24 08:19 WBC 10.5 H RBC 3.32 L Hgb 10.1 L Hct 30.8 L MCV 92.8 MCH 30.4 MCHC 32.8 RDW 12.9 Plt Count 197 MPV 8.7 Immature Gran % (Auto) 0.3 Neut % (Auto) 79.2 H Lymph % (Auto) 14.4 L [place] % (Auto) 5.9 Eos % (Auto) 0.1 Baso % (Auto) 0.1 L Lymph # (Auto) 1.52 [place] # (Auto) 0.6 Eos # (Auto) 0.0 Baso # (Auto) 0.0 Abs Immat Gran (auto) 0.03 Absolute Neuts (auto) 8.3 H Absolute Nucleated RBC 0.000 Nucleated RBC % 0.0 Sodium 132 L Potassium 4.0 Chloride 101 Carbon Dioxide 26 Anion Gap 5 BUN 10 Creatinine 1.01 H Estim Creat Clear Calc 40 Estimated GFR 54 L Glucose 116 H Calcium 8.2 L Phosphorus 3.1 Magnesium 1.7
[2024-04-07 12:24] VITALS: BP 117/52; PULSE 67; RESP 16; TEMP 36.7; O2SAT 97
--- NOTE | 2024-04-07 12:53 | PCPTNOTE ---
Attempted to see for physical therapy evaluation, hold per RN as pt is sleeping and has been unable to rest.
--- NOTE | 2024-04-07 13:17 | WPDANESPN ---
Anes - Prog Note Post-Op Date/Time: 04/07/24 13:17 Cardiovascular status: normal Respiratory status: normal Airway patency: baseline Mental status: baseline Post-Op hydration status: normal Vital Signs: Last Vital Signs Temp 36.7 C 04/07/24 12:24 Pulse 67 04/07/24 12:24 Resp 16 04/07/24 12:24 BP 117/52 L 04/07/24 12:24 Pulse Ox 97 04/07/24 12:24 O2 Del Method Room Air 04/06/24 16:22 O2 Flow Rate 8 04/06/24 15:55 Pain Score (VAS): 5 I/O: Intake & Output 04/06/24 04/07/24 04/07/24 23:59 07:59 15:59 Intake Total 1780 400 240 Output Total 900 800 Balance 880 -400 240 Laboratory Tests 04/07/24 08:19 04/07/24 08:19 04/07/24 08:19 WBC 10.5 H RBC 3.32 L Hgb 10.1 L Hct 30.8 L MCV 92.8 MCH 30.4 MCHC 32.8 RDW 12.9 Plt Count 197 MPV 8.7 Immature Gran % (Auto) 0.3 Neut % (Auto) 79.2 H Lymph % (Auto) 14.4 L [place] % (Auto) 5.9 Eos % (Auto) 0.1 Baso % (Auto) 0.1 L Lymph # (Auto) 1.52 [place] # (Auto) 0.6 Eos # (Auto) 0.0 Baso # (Auto) 0.0 Abs Immat Gran (auto) 0.03 Absolute Neuts (auto) 8.3 H Absolute Nucleated RBC 0.000 Nucleated RBC % 0.0 Sodium 132 L Potassium 4.0 Chloride 101 Carbon Dioxide 26 Anion Gap 5 BUN 10 Creatinine 1.01 H Estim Creat Clear Calc 40 Estimated GFR 54 L Glucose 116 H Calcium 8.2 L Phosphorus 3.1 Magnesium 1.7 Patient Feedback: Patient satisfied with anesthetic care, some nausea this AM.
[2024-04-07] MEDS: IBUPROFEN IV 800 MG/200 ML 800 MG/200 ML BAG 400 MG IVPB ×2 (14:09→17:43)
[2024-04-07 18:11] VITALS: BP 133/66; PULSE 65; RESP 15; TEMP 36.4; O2SAT 98
[2024-04-07] MEDS: DEXTROSE 5%/LACTATED RINGERS 1,000 ML 75 ML IV CONT (18:17)
[2024-04-07 21:00] VITALS: BP 161/68; PULSE 71; RESP 16; TEMP 36.2; O2SAT 98
[2024-04-08] MEDS: IBUPROFEN IV 800 MG/200 ML 800 MG/200 ML BAG 400 MG IVPB ×2 (00:05→06:01)
[2024-04-08] MEDS: DEXTROSE 5%/LACTATED RINGERS 1,000 ML 75 ML IV CONT ×2 (06:02→09:29)
[2024-04-08] MEDS: LEVOTHYROXINE SODIUM 50 MCG TABLET PO (06:02)
[2024-04-08 06:11] VITALS: BP 155/58; PULSE 71; RESP 16; TEMP 36.4; O2SAT 97
[2024-04-08 07:39] LABS: Basophils Percent Auto 0.3 % (0.2-1.2); Eosinophils Percent Auto 0.4 % (0-4.4); Hematocrit 26.7 % (37.0-47.0); Hemoglobin 8.6 g/dL (12.0-15.0); Immature Granulocyte Absolute 0.02 K/mm3 (0.00-0.031); Immature Granulocyte Percent A 0.3 % (0-0.5); Lymphocytes Absolute Auto 1.08 K/mm3 (0.9-3.2); Lymphocytes Percent Auto 14.9 % (18.3-44.2); Mean Corpuscular HGB Conc 32.2 g/dl (32-36); Mean Corpuscular Hemoglobin 30.7 pg (26-34); Mean Corpuscular Volume 95.4 fl (80-100); Mean Platelet Volume 9.3 fl (7.4-10.4); Monocytes Absolute Auto 0.5 K/mm3 (0.1-0.6); Monocytes Percent Auto 6.4 % (2.6-8.5); Neutrophils Absolute Auto 5.6 K/mm3 (1.3-6.7); Neutrophils Percent Auto 77.7 % (45.5-73.1); Platelet Count Result 193 k/mm3 (150-375); Red Cell Distribution Width 12.8 % (11.5-14.5); White Blood Count 7.2 K/mm3 (4.5-10.0)
[2024-04-08 07:54] LABS: Anion Gap 3 mmol/L (4-12); Blood Urea Nitrogen 10 mg/dL (7-17); Calcium 7.6 mg/dL (8.4-10.2); Carbon Dioxide 27 mmol/L (22-30); Chloride 102 mmol/L (98-107); Estimated CRCL calculation 41 ml/min; Estimated Glomerular Filt Rate 55; Glucose 93 mg/dL (65-110); Magnesium 1.9 mg/dL (1.6-2.3); Phosphorus 3.1 mg/dL (2.5-4.5); Sodium 132 mmol/L (137-145)
[2024-04-08 10:00] VITALS: BP 154/72; PULSE 72; RESP 14; TEMP 36.6; O2SAT 96
[2024-04-08] MEDS: ONDANSETRON INJ 4 MG/2 ML VIAL IV PUSH (10:22)
--- NOTE | 2024-04-08 10:56 | PM.IMPN ---
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 Status: Acute Plan 73 years old lady with history of hysterectomy, oophorectomy, CKD stage 3, hypothyroidism, present ED with chief complaint of abdomen pain.CT abdomen shows cecal volvulus. General surgery was consulted, status post Hand assisted laparoscopic right hemicolectomy with ileocolic anastomosis. # Acute abdominal pain: Secondary to cecal volvulus Code status post hand assisted laparoscopic right hemicolectomy with ileocolic anastomosis General surgery following On clear liquid diet Pain controlled Antiemetics as needed Out of bed, ambulate as tolerated Monitor leukocytosis Will stop fluids with when p.o. intake is significant Supplement magnesium Resume oral medications PT/OT as tolerated # bloood in stool: 04/08/2024. one epsiode. recheck h and h. keep npo. gen surg to evaluate. monitor. hemodynamically staable. hold lovenox # DVT prophylaxis: Lovenox will be held # Code status: Full # Disposition: Pending improvement Subjective Date/time seen: 04/08/24 10:56 Interval history: patient had an episode of blood in her stool this am. denies any nasuea, vomiting, abdominal pain.abdomen is sore from the surgery. was not constipated. she denies any dizziness or lightheadedness Review of Systems Review of Systems: All systems reviewed & are unremarkable except as noted in HPI and below Exam Narrative: GENERAL: Pleasant, in no acute distress. Well-nourished. - EYES: EOMI. Anicteric. - HENT: Moist mucous membranes. - LUNGS: Clear to auscultation bilaterally, no wheezing, rhonchi, or rales. - CARDIOVASCULAR: Regular rate and rhythm. No murmur. No JVD. - ABDOMEN: Midline incision from laparoscopic procedure yesterday, looks clean and dry and intact mildly distended,normoactive bowel sounds - EXTREMITIES: No edema. Peripheral pulses 2+. Non-tender. - NEUROLOGIC: No focal neurological deficits. CN II-XII grossly intact. - PSYCHIATRIC: Awake, Alert and oriented x 3. Appropriate mood and affect. - SKIN: No rashes or lesions. Warm. - LYMPH: No cervical lymphadenopathy. Objective Data Vital Signs Vital Signs: Vital Signs - 24 hr 04/07/24 12:24 04/07/24 18:11 04/07/24 21:00 Temperature 98.1 F 97.6 F 97.1 F L Pulse Rate 67 65 71 Respiratory Rate 16 15 16 Blood Pressure 117/52 L 133/66 161/68 H Pulse Oximetry 97 98 98 04/08/24 06:11 04/08/24 10:00 Temperature 97.6 F 97.8 F Pulse Rate 71 72 Respiratory Rate 16 14 Blood Pressure 155/58 H 154/72 H Pulse Oximetry 97 96 Intake/Output Intake/Output: Intake & Output 04/05/24 04/06/24 04/07/24 04/08/24 23:59 23:59 23:59 23:59 Intake Total 3430 2110 1780.1 Output Total 1500 800 400 Balance 1930 1310 1380.1 Meds/Results Medications: Active Medications Generic Name Dose Route Start Last Admin Trade Name Freq PRN Reason Stop Dose Admin Enoxaparin Sodium 40 mg 04/07/24 09:00 04/07/24 08:53 Enoxaparin 40 Mg/0.4 Ml Syringe SUB-Q 40 mg DAILY OUMOU Administration Fentanyl Citrate 25 mcg 04/07/24 12:03 Fentanyl Citrate Inj (*Crx) 100 Mcg/2 Ml Vial IV PUSH Q2H PRN Pain Rated 7-10 Levothyroxine Sodium 50 mcg 04/08/24 06:30 04/08/24 06:02 Levothyroxine Sodium 50 Mcg Tablet PO 50 mcg DAILY@0630 OUM[facility] Administration Naloxone HCl 0.1 mg 04/06/24 16:26 Naloxone Hcl 0.4 Mg/Ml Vial IV PUSH Q2M PRN Opiate Reversal Ondansetron HCl 4 mg 04/06/24 00:05 04/08/24 10:22 Ondansetron Inj 4 Mg/2 Ml Vial IV PUSH 4 mg Q4H PRN Administration Nausea Oxycodone HCl 2.5 mg 04/06/24 16:26 04/07/24 04:51 Oxycodone Hcl (*Crx) 2.5 Mg Tab Ir PO 2.5 mg Q4H PRN Administration Pain Rated 4-6 Oxycodone HCl 5 mg 04/06/24 16:26 Oxycodone Hcl (*Crx) 5 Mg Tab Ir PO Q4H PRN Pain Rated 7-10 Prochlorperazine Edisylate 10 mg 04/07/24 10:00 Prochlorperazine Edisylate 10 Mg/2 Ml Vial IV PUSH Q6H PRN Nausea And Vomiting Radiology Results: ITS Impressions Abdomen/Pelvis CT 04/05/24 22:43 IMPRESSION: 1. Cecal volvulus. Labs Labs: Laboratory Results - last 24 hr 04/08/24 07:17 WBC 7.2 RBC 2.80 L Hgb 8.6 L Hct 26.7 L MCV 95.4 MCH 30.7 MCHC 32.2 RDW 12.8 Plt Count 193 MPV 9.3 Immature Gran % (Auto) 0.3 Neut % (Auto) 77.7 H Lymph % (Auto) 14.9 L [place] % (Auto) 6.4 Eos % (Auto) 0.4 Baso % (Auto) 0.3 Lymph # (Auto) 1.08 [place] # (Auto) 0.5 Eos # (Auto) 0.0 Baso # (Auto) 0.0 Abs Immat Gran (auto) 0.02 Absolute Neuts (auto) 5.6 Absolute Nucleated RBC 0.000 Nucleated RBC % 0.0 Sodium 132 L Potassium 4.0 Chloride 102 Carbon Dioxide 27 Anion Gap 3 L BUN 10 Creatinine 0.99 Estim Creat Clear Calc 41 Estimated GFR 55 L Glucose 93 Calcium 7.6 L Phosphorus 3.1 Magnesium 1.9
[2024-04-08 11:21] LABS: Hematocrit 26.9 % (37.0-47.0); Hemoglobin 8.5 g/dL (12.0-15.0)
--- NOTE | 2024-04-08 11:38 | P.PNGS_ITS ---
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 Agree with holding Lovenox at this time * Advance to full liquids, stop IV fluids * Monitor H/H * Increase activity * Possibly home in next 1-2 days if improving (2) Acute blood loss anemia: Code(s): D62 - Acute posthemorrhagic anemia Status: Acute Subjective Subjective Date/Time Seen: 04/08/24 11:38 Interval history: Had bloody BM x2. Nausea improved. Pain improved. Tolerating clears. Exam GI: Inspection: incision (intact with glue, mild bruising) GI Palp: Yes Soft to palpation and Yes Tenderness to palpation present (GI) (incisional) Objective Data Vital Signs Vital Signs: Vital Signs - 24 hr 04/07/24 12:24 04/07/24 18:11 04/07/24 21:00 Temperature 98.1 F 97.6 F 97.1 F L Pulse Rate 67 65 71 Respiratory Rate 16 15 16 Blood Pressure 117/52 L 133/66 161/68 H Pulse Oximetry 97 98 98 Oxygen Delivery 04/08/24 06:11 04/08/24 09:00 04/08/24 10:00 Temperature 97.6 F 97.8 F Pulse Rate 71 72 Respiratory Rate 16 14 Blood Pressure 155/58 H 154/72 H Pulse Oximetry 97 96 Oxygen Delivery Room Air Intake/Output Intake/Output: Intake & Output 04/05/24 04/06/24 04/07/24 04/08/24 23:59 23:59 23:59 23:59 Intake Total 3430 2110 1780.1 Output Total 1500 800 400 Balance 1930 1310 1380.1 Meds/Results Medications: Active Medications Generic Name Dose Route Start Last Admin Trade Name Freq PRN Reason Stop Dose Admin Enoxaparin Sodium 40 mg 04/07/24 09:00 04/08/24 11:04 Enoxaparin 40 Mg/0.4 Ml Syringe SUB-Q Not Given DAILY [facility] Fentanyl Citrate 25 mcg 04/07/24 12:03 Fentanyl Citrate Inj (*Crx) 100 Mcg/2 Ml Vial IV PUSH Q2H PRN Pain Rated 7-10 Levothyroxine Sodium 50 mcg 04/08/24 06:30 04/08/24 06:02 Levothyroxine Sodium 50 Mcg Tablet PO 50 mcg DAILY@0630 [facility] Administration Naloxone HCl 0.1 mg 04/06/24 16:26 Naloxone Hcl 0.4 Mg/Ml Vial IV PUSH Q2M PRN Opiate Reversal Ondansetron HCl 4 mg 04/06/24 00:05 04/08/24 10:22 Ondansetron Inj 4 Mg/2 Ml Vial IV PUSH 4 mg Q4H PRN Administration Nausea Oxycodone HCl 2.5 mg 04/06/24 16:26 04/07/24 04:51 Oxycodone Hcl (*Crx) 2.5 Mg Tab Ir PO 2.5 mg Q4H PRN Administration Pain Rated 4-6 Oxycodone HCl 5 mg 04/06/24 16:26 Oxycodone Hcl (*Crx) 5 Mg Tab Ir PO Q4H PRN Pain Rated 7-10 Prochlorperazine Edisylate 10 mg 04/07/24 10:00 Prochlorperazine Edisylate 10 Mg/2 Ml Vial IV PUSH Q6H PRN Nausea And Vomiting Radiology Results: ITS Impressions Abdomen/Pelvis CT 04/05/24 22:43 IMPRESSION: 1. Cecal volvulus. Labs Labs: Laboratory Results - last 24 hr 04/08/24 04/08/24 07:17 10:54 WBC 7.2 RBC 2.80 L Hgb 8.6 L 8.5 L Hct 26.7 L 26.9 L MCV 95.4 MCH 30.7 MCHC 32.2 RDW 12.8 Plt Count 193 MPV 9.3 Immature Gran % (Auto) 0.3 Neut % (Auto) 77.7 H Lymph % (Auto) 14.9 L Ector % (Auto) 6.4 Eos % (Auto) 0.4 Baso % (Auto) 0.3 Lymph # (Auto) 1.08 Ector # (Auto) 0.5 Eos # (Auto) 0.0 Baso # (Auto) 0.0 Abs Immat Gran (auto) 0.02 Absolute Neuts (auto) 5.6 Absolute Nucleated RBC 0.000 Nucleated RBC % 0.0 Sodium 132 L Potassium 4.0 Chloride 102 Carbon Dioxide 27 Anion Gap 3 L BUN 10 Creatinine 0.99 Estim Creat Clear Calc 41 Estimated GFR 55 L Glucose 93 Calcium 7.6 L Phosphorus 3.1 Magnesium 1.9
[2024-04-08 14:00] VITALS: BP 141/62; PULSE 65; RESP 16; O2SAT 98
[2024-04-08 20:20] VITALS: BP 135/64; PULSE 72; RESP 18; TEMP 37.2; O2SAT 97
[2024-04-09] MEDS: oxyCODONE HCL (*CRX) 5 MG TAB IR PO (00:39)
[2024-04-09 04:52] VITALS: BP 106/57; PULSE 64; RESP 18; TEMP 36.7; O2SAT 98
[2024-04-09] MEDS: LEVOTHYROXINE SODIUM 50 MCG TABLET PO (06:08)
[2024-04-09 06:40] LABS: Hematocrit 30.7 % (37.0-47.0); Hemoglobin 9.7 g/dL (12.0-15.0); Mean Corpuscular HGB Conc 31.6 g/dl (32-36); Mean Corpuscular Hemoglobin 29.8 pg (26-34); Mean Corpuscular Volume 94.2 fl (80-100); Mean Platelet Volume 9.1 fl (7.4-10.4); Platelet Count Result 233 k/mm3 (150-375); Red Blood Count 3.26 M/mm3 (4.2-5.4); Red Cell Distribution Width 12.7 % (11.5-14.5); White Blood Count 7.1 K/mm3 (4.5-10.0)
[2024-04-09 06:52] LABS: Anion Gap 5 mmol/L (4-12); Blood Urea Nitrogen 14 mg/dL (7-17); Calcium 8.1 mg/dL (8.4-10.2); Carbon Dioxide 28 mmol/L (22-30); Chloride 103 mmol/L (98-107); Estimated CRCL calculation 37 ml/min; Estimated Glomerular Filt Rate 48; Glucose 93 mg/dL (65-110); Magnesium 2.1 mg/dL (1.6-2.3); Potassium 4.1 mmol/L (3.4-5.0); Sodium 136 mmol/L (137-145)
--- NOTE | 2024-04-09 11:25 | PM.PNGS ---
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 Status: Acute Assessment and Plan: doing well, will ADAT, H/H improved, home soon if anil diet, encourage OOB/IS Subjective Subjective Date/Time Seen: 04/09/24 11:25 Interval history: feels good, anil full liquids, some blood c BMs Review of Systems Review of Systems: All systems reviewed & are unremarkable except as noted in HPI and below Exam Const: General: cooperative, comfortable and no acute distress Resp: Auscultation: clear to auscultation bilaterally Cardio: Rate: regular rate Rhythm: regular rhythm GI: Inspection: normal to inspection, non-distended and incision GI Palp: Yes abdominal tenderness and Yes Soft to palpation Objective Data Vital Signs Vital Signs: Vital Signs - 24 hr 04/08/24 14:00 04/08/24 20:20 04/09/24 04:52 Temperature 37.2 C 36.7 C Pulse Rate 65 72 64 Respiratory Rate 16 18 18 Blood Pressure 141/62 H 135/64 106/57 L Pulse Oximetry 98 97 98 Oxygen Delivery 04/09/24 08:36 Temperature Pulse Rate Respiratory Rate Blood Pressure Pulse Oximetry Oxygen Delivery Room Air Intake/Output Intake/Output: Intake & Output 04/06/24 04/07/24 04/08/24 04/09/24 23:59 23:59 23:59 23:59 Intake Total 3430 2110 2686.4 630 Output Total 1500 800 400 Balance 1930 1310 2286.4 630 Meds/Results Medications: Active Medications Generic Name Dose Route Start Last Admin Trade Name Freq PRN Reason Stop Dose Admin Enoxaparin Sodium 40 mg 04/07/24 09:00 04/08/24 11:04 Enoxaparin 40 Mg/0.4 Ml Syringe SUB-Q Not Given DAILY [facility] Fentanyl Citrate 25 mcg 04/07/24 12:03 Fentanyl Citrate Inj (*Crx) 100 Mcg/2 Ml Vial IV PUSH Q2H PRN Pain Rated 7-10 Ibuprofen 600 mg 04/08/24 11:37 Ibuprofen 600 Mg Tablet PO Q6H PRN Pain Rated 1-3 Levothyroxine Sodium 50 mcg 04/08/24 06:30 04/09/24 06:08 Levothyroxine Sodium 50 Mcg Tablet PO 50 mcg DAILY@0630 [facility] Administration Naloxone HCl 0.1 mg 04/06/24 16:26 Naloxone Hcl 0.4 Mg/Ml Vial IV PUSH Q2M PRN Opiate Reversal Ondansetron HCl 4 mg 04/06/24 00:05 04/08/24 10:22 Ondansetron Inj 4 Mg/2 Ml Vial IV PUSH 4 mg Q4H PRN Administration Nausea Oxycodone HCl 2.5 mg 04/06/24 16:26 04/07/24 04:51 Oxycodone Hcl (*Crx) 2.5 Mg Tab Ir PO 2.5 mg Q4H PRN Administration Pain Rated 4-6 Oxycodone HCl 5 mg 04/06/24 16:26 04/09/24 00:39 Oxycodone Hcl (*Crx) 5 Mg Tab Ir PO 5 mg Q4H PRN Administration Pain Rated 7-10 Prochlorperazine Edisylate 10 mg 04/07/24 10:00 Prochlorperazine Edisylate 10 Mg/2 Ml Vial IV PUSH Q6H PRN Nausea And Vomiting Radiology Results: ITS Impressions Abdomen/Pelvis CT 04/05/24 22:43 IMPRESSION: 1. Cecal volvulus. Labs Labs: Laboratory Results - last 24 hr 04/09/24 06:05 WBC 7.1 RBC 3.26 L Hgb 9.7 L Hct 30.7 L MCV 94.2 MCH 29.8 MCHC 31.6 L RDW 12.7 Plt Count 233 MPV 9.1 Sodium 136 L Potassium 4.1 Chloride 103 Carbon Dioxide 28 Anion Gap 5 BUN 14 Creatinine 1.12 H Estim Creat Clear Calc 37 Estimated GFR 48 L Glucose 93 Calcium 8.1 L Magnesium 2.1
--- NOTE | 2024-04-09 12:04 | P.DS_ITS ---
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 Patient had a sudden onset abdomen pain about 11:30 a.m. yesterday, constant on cramping, locating right low abdomen. Patient denies nausea vomiting. Patient had a bowel movement yesterday afternoon. Patient denies fever, chills, also denies chest pain palpitation shortness breath, dysuria. The pain became intolerable yesterday evening, therefore patient came to ED for evaluation treatment. Upon arrival in ED, patient was afebrile, blood pressure stable, pulse ox 99 on room air, CBC showed hemoglobin 11.8, white blood cell within normal limit, chemistry unremarkable, urinalysis unremarkable. CT abdomen shows cecal volvulus. Patient underwent Hand assisted laparoscopic right hemicolectomy with ileocolic anastomosis. Pain has markedly improved and patient is tolerating diet. Patient has blood in stool and surgery noted that is expected. Discussed with gen surgery he is okay with discharge and will continue outpatient follow up discharged on PRN pain control. F/u with PCP in 3-5 days F/u with Gen surgery as instructed Time Spent with Patient Time attestation: Total time spent providing and/or coordinating discharge services: DS: Data Data Completed and Pending Completed studies during hospitalization: Pending at discharge 04/06/24 14:32 Surgical [PTH] Routine Labs on day of discharge: Labs from last 24 hours 04/09/24 06:05 WBC 7.1 RBC 3.26 L Hgb 9.7 L Hct 30.7 L MCV 94.2 MCH 29.8 MCHC 31.6 L RDW 12.7 Plt Count 233 MPV 9.1 Sodium 136 L Potassium 4.1 Chloride 103 Carbon Dioxide 28 Anion Gap 5 BUN 14 Creatinine 1.12 H Estim Creat Clear Calc 37 Estimated GFR 48 L Glucose 93 Calcium 8.1 L Magnesium 2.1 Discharge Plan Discharge Attending physician on discharge: Fernando Benitez Consulting providers: Jose Elias Zamora Discharging Clinician: Fernando Benitez Anticipated Discharge Date/Time: 04/09/24 12:00 Patient Disposition: Home, Self-Care Activity: as tolerated Diet: regular Discharge Instructions: F/u with Surgery as instructed Patient Instructions: Antibiotic Form Patient Language: Hungarian Stand Alone Forms: General Discharge Information Follow-up/Referrals: Froylan Pettit MD [Primary Care Provider] - (F/u with PCP in 3-5 days) Jose Elias Zamora DO [Physician] - (F/u with surgery as instructed ) Discharge Medications: New oxycodone 5 mg Tablet 5 mg PO Q4H PRN (Reason: Pain Rated 7-10) 5 Days Qty: 10 0RF Continued ondansetron 4 mg tablet,disintegrating 4 mg PO Q8H PRN (Reason: nausea and vomiting) Qty: 30 0RF levocetirizine [Xyzal] 5 mg tablet 2.5 mg PO DAILY Calcium 600 + D(3) 600 mg-5 mcg (200 unit) capsule 1 cap PO DAILY calcium polycarbophil [Fiber (calcium polycarbophil)] 625 mg tablet 1,250 mg PO DAILY levothyroxine 50 mcg tablet 50 mcg PO DAILY Qty: 90 3RF ezetimibe [Zetia] 10 mg tablet 10 mg PO DAILY Qty: 30 5RF ergocalciferol (vitamin D2) 1,250 mcg (50,000 unit) capsule See Rx Instructions .ROUTE .COMPLEX Qty: 6 2RF Dose Instruction: TAKE 1 CAPSULE BY MOUTH EVERY OTHER WEEK Rx Instructions: TAKE 1 CAPSULE BY MOUTH EVERY OTHER WEEK Date of admission: 04/07/24 10:07 Primary Care Provider: Froylan Pettit Admitting Provider: Marisol Victoria V. Attending physician on admission: Marisol Victoria V. Condition: Stable
== END 2024-04-09 16:45 | disposition home or self-care (01) | DRG 331 ==
LOC: ANHED 04-06 00:02 → ANH3MED 04-06 00:34
PROVIDERS: Hospitalist; Nurse Practitioner Family; Surgery; Admitting Provider Internal Medicine; Emergency Provider Registered Nurse; PCP Family Medicine; Visit Provider Internal Medicine
PROC: 0DTF4ZZ Resection of Right Large Intestine, Percutaneous Endoscopic Approach (ICD-10-PCS; CPT 44204; principal; 2024-04-06 13:30)
DX: K56.2 Volvulus (principal); N18.31 Chronic kidney disease, stage 3a; E03.9 Hypothyroidism, unspecified; K21.9 Gastro-esophageal reflux disease without esophagitis; M19.90 Unspecified osteoarthritis, unspecified site; D64.9 Anemia, unspecified; Z90.722 Acquired absence of ovaries, bilateral; Z90.710 Acquired absence of both cervix and uterus
CPT/HCPCS: 36415; 74177; 80048; 80053; 81001; 83605; 83690; 83735; 84100; 85014; 85018; 85025; 85027; 85610; 85730; 86850; 86900; 86901; 88307; 93005; 96361; 96374; 97161; 97165; 99285; A4248; A9270; G0378; J0650; J0690; J1100; J1171; J1650; J1741; J1885; J2250; J2270; J2405; J2704; J3010; J3475; J7030; J7120; J7121; Q9967

== ENCOUNTER 2024-07-13 14:17 | Outpatient (CLI) | payer MEDICARE, SELFPAY ==
--- NOTE | ~2024-07-13 | MM_ITS ---
EXAMINATION: MM screening alireza BI w kaylee HISTORY: Screening TECHNIQUE: Craniocaudal and mediolateral oblique 3-D tomosynthesis images were obtained and synthetic 2-D images were generated. CAD analysis was submitted and interpreted. COMPARISON: Comparison to multiple prior studies sequentially, with oldest reviewed study dated 05/2018. BREAST PARENCHYMAL COMPOSITION: Dense: The breasts are heterogeneously dense, which may obscure small masses FINDINGS: There is no evidence of suspicious mass, calcification, or architectural distortion to sugg est malignancy in either breast. There has been no suspicious interval change. IMPRESSION: 1. No mammographic evidence of malignancy. 2. Recommend routine screening mammography in one year. BI-RADS Category 1: Negative Reviewed, dictated and finalized at location A.
--- OUTSIDE RECORDS SUMMARY | 2024-07-13 14:28 | XMS_ITS | Clinical Summary ---
Author Organization [facility] Maisha mayer Address [address] [place] [id number] Phone Care Team Providers Care Mortgage Field Inspector Name Role Phone Unavailable Primary Care Provider Unavailabl e Medications levothyroxine (SYNTHROID, LEVOTHROID) 50 MCG tablet 01/28/2012 Active ergocalciferol (VITAMIN D-2) 61975 units capsule 1 every 2 weeks 01/11/2014 [...] Years Used Date Smoking Tobacco: Never Assessed Comments Unknown Sex and Gender Information Value Date Recorded Sex Assigned at Not on file Legal Sex Female 9:56 AM MST Gender Identity Not on file Sexual Orientation Not on file Last Filed Vital Signs Vital Sign Reading Time Taken Comments Blood Pressure 108/60 01/11/2014 12:01 AM MEDIA CLERK Pulse 72 01/11/2014 12:01 AM MEDIA CLERK Temperature 36.3 C (97.3 F) 01/11/2014 12:01 AM MEDIA CLERK Respiratory Rate - - Oxygen Saturation - - Inhaled Oxygen Concentration - - Weight 57.2 kg (126 lb) 01/11/2014 12:01 AM MEDIA CLERK Height 167.6 cm (5' 6 ) 01/11/2014 12:01 AM MEDIA CLERK Body Mass Index 20.34 01/11/2014 12:01 AM MEDIA CLERK Plan of Treatment Not on file
== END 2024-07-13 14:18 | disposition home or self-care (01) ==
LOC: ANHIMG 14:20
PROVIDERS: PCP Family Medicine; Visit Provider Nurse Practitioner Obstetrics & Gynecology
DX: Z12.31 Encounter for screening mammogram for malignant neoplasm of breast (principal)
CPT/HCPCS: 77063; 77067

== ENCOUNTER 2024-12-15 10:51 | Outpatient (CLI) | payer MEDICARE, SELFPAY ==
--- NOTE | ~2024-12-15 | CT_ITS ---
EXAMINATION: CT abdomen wo con DATE: 12/15/2024 11:04 INDICATION: Periumbilical pain. TECHNIQUE: Computed tomography (CT) of the abdomen was performed without intravenous contrast. Automated exposure control and iterative reconstruction technique were employed. The dose-length product was 110.95 mGy-cm. COMPARISON: CT abdomen and pelvis 04/05/24 FINDINGS: The visualized portions of the lung bases demonstrate mild atelectasis. No pleural effusion. The liver, gallbladder, spleen, pancreas, adrenal glands, and kidneys are normal. There is no urolithiasis. There are no dilated loops of bowel. There are surgical changes of right colon. There are no pathologically enlarged lymph nodes. There is no free intraperitoneal fluid. There is severe lumbar spondylosis. 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 IMPRESSION: 1. No etiology for the patient's symptoms. Reviewed, dictated and finalized at location E.
== END 2024-12-15 10:52 | disposition home or self-care (01) ==
LOC: MICIMG 10:52
PROVIDERS: PCP Family Medicine; Visit Provider Surgery
DX: R10.33 Periumbilical pain (principal)
CPT/HCPCS: 74150

== ENCOUNTER 2025-02-14 03:34 | Day surgery (SDC) | payer MEDICARE, SELFPAY ==
[2025-02-09 12:54] VITALS: BMI 18.8
--- OUTSIDE RECORDS SUMMARY | 2025-02-14 03:38 | XMS_ITS | Clinical Summary ---
Author Organization [facility] Maisha mayer Address [address] [place] [id number] Phone Care Team Providers Care Seed Laboratory Technician Name Role Phone Unavailable Primary Care Provider Unavailabl e Medications levothyroxine (SYNTHROID, LEVOTHROID) 50 MCG tablet 01/28/2012 Active ergocalciferol (VITAMIN D-2) 68666 units capsule 1 every 2 weeks 01/11/2014 [...] Comments Blood Pressure 108/60 01/11/2014 12:01 AM DIAL PRINTER Pulse 72 01/11/2014 12:01 AM DIAL PRINTER Temperature 36.3 C (97.3 F) 01/11/2014 12:01 AM DIAL PRINTER Respiratory Rate - - Oxygen Saturation - - Inhaled Oxygen Concentration - - Weight 57.2 kg (126 lb) 01/11/2014 12:01 AM DIAL PRINTER Height 167.6 cm (5' 6) 01/11/2014 12:01 AM DIAL PRINTER Body Mass Index 20.34 01/11/2014 12:01 AM DIAL PRINTER Plan of Treatment Not on file
[2025-02-14 07:48] VITALS: BP 138/67; PULSE 75; RESP 16; TEMP 36.2; O2SAT 100; BMI 18.4
--- NOTE | 2025-02-14 07:57 | WPDANESEPPF ---
Anes - Initial Pre Proc Eval Procedure: Operation Date: 02/14/25 09:00 Proposed Procedures p Screening Colonoscopy - Jose Elias Zamora DO Date/Time: 02/14/25 07:57 Surgeon: Jose Elias Zamora DO Pre Op Diagnosis: screening for malignant neoplasm of colon Patient Data Age: 74 Gender: F Height: 1.68 m Weight: 51.9 kg Last Vital Signs Temp 36.2 C L 02/14/25 07:48 Pulse 75 02/14/25 07:48 Resp 16 02/14/25 07:48 BP 138/67 02/14/25 07:48 Pulse Ox 100 02/14/25 07:48 O2 Del Method Room Air 02/14/25 07:48 Allergies Allergy/AdvReac Type Severity Reaction Status Date / Time tramadol Allergy Intermediate RAPID Verified 02/14/25 07:53 HEART RATE/LOSS OF WEIGHT azithromycin Allergy Mild RASH Verified 02/14/25 07:53 Penicillins Allergy Mild Rash Verified 02/14/25 07:53 sulfamethoxazole (From Allergy Mild Unknown Verified 02/14/25 07:53 Bactrim) trimethoprim (From Bactrim) Allergy Mild Unknown Verified 02/14/25 07:53 nitrofurantoin Allergy Unknown Hives Verified 02/14/25 07:53 [id number] Reductase AdvReac Unknown MUSCLE Verified 02/14/25 07:53 Inhibitor (Vsrlsmn-[id number]-Uuh WEAKNESS Reductase Inhibitor) acetaminophen (From Tylenol) AdvReac constipatio Verified 02/14/25 07:53 n hydrocodone AdvReac Other Verified 02/14/25 07:53 Home Medications ?Medication ?Instructions ?Recorded ?Confirmed ?Type calcium 600 mg (as 1 cap PO DAILY 04/06/24 02/14/25 History carbonate)-vitamin D3 5 mcg (200 unit) capsule (Calcium 600 + D(3)) calcium polycarbophil 625 mg 1,250 mg PO DAILY 04/06/24 02/14/25 History tablet (Fiber (calcium polycarbophil)) levocetirizine 5 mg tablet (Xyzal) 2.5 mg PO DAILY 05/05/24 02/14/25 History levothyroxine 50 mcg tablet 50 mcg PO DAILY #90 tabs 09/20/24 02/14/25 Rx ezetimibe 10 mg tablet See Rx Instructions .Route 11/02/24 02/14/25 Rx .COMPLEX #30 tabs ergocalciferol (vitamin D2) 1,250 See Rx Instructions .Route 02/06/25 02/14/25 Rx mcg (50,000 unit) capsule .COMPLEX #6 caps calcium polycarbophil 625 mg 1,250 mg PO DAILY 02/09/25 02/14/25 History tablet (Fiber (calcium polycarbophil)) Patient hx anesthesia problems: none Family hx anesthesia problems: none Results Review: All pre-operative results and documents have been reviewed as part of the pre-operative evaluation. [facility] Past Medical History Medical History Elevated serum creatinine Statin intolerance Kidney disease Arthritis H/O vaginal delivery Endometriosis Hypothyroidism Surgical History Surgical History Hx of right hemicolectomy rosa henicolecolectomy 04/02 Dr Jose Elias Zamora MD History of partial colectomy R, s/p cecal volvulus History of laparotomy For endometriosis History of laparoscopy For endometriosis S/P oophorectomy H/O dilation and curettage Hx of tonsillectomy H/O: hysterectomy Family History Family History Grandparent Carcinoma of colon Mother Family history of malignant neoplasm of breast in first degree relative Son Family history of alcoholism Depression Sibling Diabetes mellitus Heart disease Other Hypertension Social History Social History Social History: Smoking status: Never smoker Second hand tobacco smoke exposure: No Alcohol intake: never Substance use: never Substance use type: does not use Lack of Transportation: No Lack of Food: Never True Current Housing: I Have Housing Concerned About Future Housing: No Difficulty Paying Gas/Electric Bills: No Difficulty Paying for Meds: No Currently Unemployed: No Education: Master's Degree or Higher Difficulty w/ Childcare or Family Care: No Living arrangements: with family Occupation/Education: retired Gender identity (if verbalized by the patient): Female Sexual Orientation (if Verbalized by the Patient): Straight or Heterosexual Spiritual care concerns: No Anes - Eval Final PreProcedure Day of Procedure 02/14/25 07:57 Patient weight: thin Heart: regular rate and rhythm Lungs: clear to auscultation Airway: Mallampati scale class 1 Neurological: alert and oriented Last oral intake: >/= 8 hours ASA classification: III Emergent: no Anesthetic plan: proceed Anesthesia type and monitoring: general GIVS and standard monitoring Results Review: All pre-operative results and documents have been reviewed as part of the pre-operative evaluation. Informed Consent: The patient's anesthetic plan and its attendant risks and benefits were discussed with the patient/family/POA. Questions were solicited and answers provided to the satisfaction of the patient/family/POA.
[2025-02-14] MEDS: ONDANSETRON INJ 4 MG/2 ML VIAL IV PUSH (08:08)
[2025-02-14] MEDS: LACTATED RINGERS 1,000 ML 150 ML IV CONT (08:08)
--- NOTE | 2025-02-14 08:41 | PM.IMHP2 ---
H&P: HPI History of Present Illness Date/Time: 02/14/25 08:41 Chief Complaint: screening for colorectal cancer Narrative: this is a 74-year-old woman who presents for colonoscopy. She denies hematochezia or melena. She denies first-degree relative family history of colon cancer but does have a grandparent and uncle had colon cancer. She has a history of right hemicolectomy for cecal volvulus and has some occasional pain and diarrhea since then. Review of Systems Review of Systems: All systems reviewed & are unremarkable except as noted in HPI and below Constitutional: Constitutional: Denies chills, Denies fever(s), Denies headache(s) and Denies weight loss Eyes: Eyes: Denies change in vision ENT: Denies dizziness, Denies headache(s), Denies neck mass and Denies throat swelling Cardiovascular: Cardiovascular: Denies chest pain, Denies lightheadedness and Denies dyspnea Respiratory: Respiratory: Denies cough, Denies dyspnea and Denies wheezing Gastrointestinal: Gastrointestinal: Denies abdominal pain, Denies change in bowel habits, Denies nausea and Denies vomiting Genitourinary: Genitourinary: Denies hematuria and Denies dysuria Musculoskeletal: Musculoskeletal: Reports as per HPI Integumentary/Breasts: Skin/Breast: Reports as per HPI Neurologic: Denies dizziness and Denies headache(s) Allergic/Immunologic: Allergic/Immunologic: Denies throat swelling and Denies wheezing PENDING SALE TO [facility] Past Medical History Medical History Elevated serum creatinine Statin intolerance Kidney disease Arthritis H/O vaginal delivery Endometriosis Hypothyroidism Surgical History Surgical History Hx of right hemicolectomy rosa henicolecolectomy 04/02 Dr Jose Elias Zamora MD History of partial colectomy R, s/p cecal volvulus History of laparotomy For endometriosis History of laparoscopy For endometriosis S/P oophorectomy H/O dilation and curettage Hx of tonsillectomy H/O: hysterectomy Family History Family History Grandparent Carcinoma of colon Mother Family history of malignant neoplasm of breast in first degree relative Son Family history of alcoholism Depression Sibling Diabetes mellitus Heart disease Other Hypertension Social History Social History Social History: Smoking status: Never smoker Second hand tobacco smoke exposure: No Alcohol intake: never Substance use: never Substance use type: does not use Lack of Transportation: No Lack of Food: Never True Current Housing: I Have Housing Concerned About Future Housing: No Difficulty Paying Gas/Electric Bills: No Difficulty Paying for Meds: No Currently Unemployed: No Education: Master's Degree or Higher Difficulty w/ Childcare or Family Care: No Living arrangements: with family Occupation/Education: retired Gender identity (if verbalized by the patient): Female Sexual Orientation (if Verbalized by the Patient): Straight or Heterosexual Spiritual care concerns: No Meds Home Medications and Allergies Home Medications ?Medication ?Instructions ?Recorded ?Confirmed ?Type calcium 600 mg (as 1 cap PO DAILY 04/06/24 02/14/25 History carbonate)-vitamin D3 5 mcg (200 unit) capsule (Calcium 600 + D(3)) calcium polycarbophil 625 mg 1,250 mg PO DAILY 04/06/24 02/14/25 History tablet (Fiber (calcium polycarbophil)) levocetirizine 5 mg tablet (Xyzal) 2.5 mg PO DAILY 05/05/24 02/14/25 History levothyroxine 50 mcg tablet 50 mcg PO DAILY #90 tabs 09/20/24 02/14/25 Rx ezetimibe 10 mg tablet See Rx Instructions .Route 11/02/24 02/14/25 Rx .COMPLEX #30 tabs ergocalciferol (vitamin D2) 1,250 See Rx Instructions .Route 02/06/25 02/14/25 Rx mcg (50,000 unit) capsule .COMPLEX #6 caps calcium polycarbophil 625 mg 1,250 mg PO DAILY 02/09/25 02/14/25 History tablet (Fiber (calcium polycarbophil)) Allergies Allergy/AdvReac Type Severity Reaction Status Date / Time tramadol Allergy Intermediate RAPID Verified 02/14/25 07:53 HEART RATE/LOSS OF WEIGHT azithromycin Allergy Mild RASH Verified 02/14/25 07:53 Penicillins Allergy Mild Rash Verified 02/14/25 07:53 sulfamethoxazole (From Allergy Mild Unknown Verified 02/14/25 07:53 Bactrim) trimethoprim (From Bactrim) Allergy Mild Unknown Verified 02/14/25 07:53 nitrofurantoin Allergy Unknown Hives Verified 02/14/25 07:53 morphine Allergy Nausea Verified 02/14/25 08:06 [id number] Reductase AdvReac Unknown MUSCLE Verified 02/14/25 07:53 Inhibitor ([id number] WEAKNESS Reductase Inhibitor) acetaminophen (From Tylenol) AdvReac constipatio Verified 02/14/25 07:53 n hydrocodone AdvReac Other Verified 02/14/25 07:53 Vital Signs Vital Signs - 24 hr 02/14/25 07:48 Temperature 97.2 F L Pulse Rate 75 Respiratory Rate 16 Blood Pressure 138/67 Pulse Oximetry 100 Oxygen Delivery Room Air Exam Const: General: no acute distress and alert Orientation/consciousness: patient oriented x3 HENMT: Head: normocephalic and atraumatic Ears: hearing grossly normal bilaterally Face/Nose/Sinus: Normal nares present Mouth: Yes Normal oral and palatal mucosa present Eyes: Periorbital: periorbital findings normal Sclera: sclerae normal EOM: EOMs intact bilaterally Neck: Neck: normal visual inspection, no lymphadenopathy and trachea midline Chest: Chest palpation & inspection: normal inspection of the chest Resp: Effort & Inspection: normal respiratory effort Auscultation: clear to auscultation bilaterally Cardio: Jugular venous distension: no JVD Rate: regular rate Rhythm: regular rhythm Heart sounds: S1 normal heart sound present and S2 normal heart sound present Peripheral pulses: Peripheral pulses 2+ throughout GI: Inspection: normal to inspection GI Palp: Yes Soft to palpation, No Tenderness to palpation present (GI), No Guarding due to palpation present (GI) and No Rebound tenderness present Percussion: Yes normal to percussion Auscultation: normal bowel sounds : General: Yes no CVA tenderness Back/Spine/Pelvis: Back: no CVA tenderness Neuro: General: patient oriented x3, no focal motor deficits and CN's II-XI intact bilaterally Cognition (Neuro): normal cognition Speech: normal speech Motor exam (neuro): 5/5 motor strength present throughout Extrem: General: capillary refill normal and no clubbing, cyanosis or edema Assessment and Plan Assessment and plan (1) Screening for colorectal cancer: Code(s): Z12.11 - Encounter for screening for malignant neoplasm of colon; Z12.12 - Encounter for screening for malignant neoplasm of rectum Status: Acute Assessment and Plan: I have recommended colonoscopy. I have discussed the procedure, risks, benefits, and alternatives. Questions were answered. Patient is agreeable to proceed.
[2025-02-14 09:04] VITALS: BP 100/54; PULSE 60; RESP 21; O2SAT 100
[2025-02-14 09:14] VITALS: BP 86/53; PULSE 57; RESP 17; O2SAT 95
[2025-02-14 09:24] VITALS: BP 110/66; PULSE 53; RESP 15; O2SAT 98
== END 2025-02-14 09:45 | disposition home or self-care (01) ==
PROVIDERS: PCP Family Medicine; Visit Provider Surgery
PROC: 0DJD8ZZ Inspection of Lower Intestinal Tract, Via Natural or Artificial Opening Endoscopic (ICD-10-PCS; CPT 45378; principal; 2025-02-14 09:00)
DX: Z12.11 Encounter for screening for malignant neoplasm of colon (principal); E03.9 Hypothyroidism, unspecified; N80.9 Endometriosis, unspecified; N28.9 Disorder of kidney and ureter, unspecified; M19.90 Unspecified osteoarthritis, unspecified site; Z98.890 Other specified postprocedural states; Z90.49 Acquired absence of other specified parts of digestive tract; Z80.0 Family history of malignant neoplasm of digestive organs; Z80.3 Family history of malignant neoplasm of breast; Z82.49 Family history of ischemic heart disease and other diseases of the circulatory system
CPT/HCPCS: G0105; J2405; J2704; J7120